=== PATIENT | male | born 1965 | race Caucasian/White ===

== ENCOUNTER 2017-08-22 07:15 | Day surgery (SDC) | payer OTHER, SELFPAY ==
--- NOTE | 2017-08-22 07:15 | DT_ITS ---
This patient was seen during an EMR downtime August 20, 2017 - August 27, 2017. This patient may have a combination of paper and electronic documentation or all paper documentation. All documentation is viewable within the e-chart portion of [facility] for each patient visit.
== END 2017-08-22 09:25 | disposition home or self-care (01) ==
LOC: EN 08-23 11:28
PROVIDERS: Family Provider Family Medicine; PCP Family Medicine; Visit Provider Surgery
PROC: 0DJD8ZZ Inspection of Lower Intestinal Tract, Via Natural or Artificial Opening Endoscopic (ICD-10-PCS; CPT 45378; principal; 2017-08-22 08:25)
DX: Z12.11 Encounter for screening for malignant neoplasm of colon (principal); Z80.0 Family history of malignant neoplasm of digestive organs
CPT/HCPCS: 45378; J7120; J1610

== ENCOUNTER → 2017-10-13 09:19 | Outpatient (CLI) | payer OTHER, SELFPAY ==
[2017-10-13 10:44] LABS: AST(SGOT) 18 U/L (15-37); Alanine Aminotransfer ALT/SGPT 33 U/L (16-61); Alkaline Phosphatase 55 U/L (45-117); Anion Gap 7 (5-15); BUN 14 mg/dL (7-18); Bilirubin, Direct 0.14 mg/dL (0.00-0.30); Calcium,Total 9.1 mg/dL (8.5-10.1); Chloride 106 mmol/L (98-107); Cholesterol 149 mg/dL (200); EST Glomerular Filtration Rate 84 mL/min (>60); Est Glom Filt Rate - Afr Amer 102 mL/min (>60); Globulin 3.3 g/dL (2.2-4.2); Glucose 147 mg/dL (74-106); High Density Lipoprotein 46 mg/dL; Potassium 4.3 mmol/L (3.5-5.1); Protein, Total 7.3 g/dL (6.4-8.2); Sodium Level 142 mmol/L (136-145); Triglycerides 123 mg/dL; Very Low Density Lipoprotein 25 mg/dL (5-40)
[2017-10-13 10:48] LABS: Hemoglobin A1c 7.1 % (4.2-6.3)
[2017-10-13 10:56] LABS: Microalbumin,Random Urine 5.3 mg/L (NO RANGE EST.); Microalbumin:Creatinine Ratio 5.5 mg/g CRE (<30 mg/g CRE)
== END ==
PROVIDERS: Family Provider Family Medicine; PCP Family Medicine; Visit Provider Family Medicine
DX: E11.9 Type 2 diabetes mellitus without complications (principal)
CPT/HCPCS: 36415; 80048; 80061; 80076; 82043; 82570; 83036

== ENCOUNTER → 2019-04-02 15:52 | Outpatient (CLI) | payer OTHER, SELFPAY ==
[2019-04-02 17:52] LABS: Anion Gap 6 (5-15); BUN 20 mg/dL (7-18); BUN/Creat Ratio 11.8 RATIO (10-20); Calcium,Total 8.9 mg/dL (8.5-10.1); Chloride 108 mmol/L (98-107); Cholesterol 168 mg/dL (200); Creatinine, Serum 1.69 mg/dL (0.70-1.30); EST Glomerular Filtration Rate 46 mL/min (>60); Est Glom Filt Rate - Afr Amer 55 mL/min (>60); Glucose 101 mg/dL (74-106); High Density Lipoprotein 41 mg/dL; Potassium 3.8 mmol/L (3.5-5.1); Sodium Level 140 mmol/L (136-145); Triglycerides 298 mg/dL; Very Low Density Lipoprotein 60 mg/dL (5-40)
[2019-04-02 17:57] LABS: Hemoglobin A1c 8.1 % (4.2-6.3)
[2019-04-02 18:02] LABS: Microalbumin,Random Urine 8.5 mg/L (NO RANGE EST.); Microalbumin:Creatinine Ratio 5.9 mg/g CRE (<30 mg/g CRE)
== END ==
PROVIDERS: Family Provider Family Medicine; PCP Family Medicine; Referring Provider Family Medicine; Visit Provider Family Medicine
DX: E11.9 Type 2 diabetes mellitus without complications (principal)
CPT/HCPCS: 36415; 80048; 80061; 82043; 82570; 83036

== ENCOUNTER → 2019-07-24 08:26 | Outpatient (CLI) | payer OTHER, SELFPAY ==
[2019-07-24 11:06] LABS: Anion Gap 6 (5-15); BUN 20 mg/dL (7-18); BUN/Creat Ratio 19.8 RATIO (10-20); Calcium,Total 8.9 mg/dL (8.5-10.1); Chloride 104 mmol/L (98-107); Cholesterol 167 mg/dL (200); Creatinine, Serum 1.01 mg/dL (0.70-1.30); EST Glomerular Filtration Rate 82 mL/min (>60); Est Glom Filt Rate - Afr Amer 100 mL/min (>60); Glucose 142 mg/dL (74-106); High Density Lipoprotein 42 mg/dL; Potassium 4.3 mmol/L (3.5-5.1); Sodium Level 137 mmol/L (136-145); Triglycerides 119 mg/dL; Very Low Density Lipoprotein 24 mg/dL (5-40)
== END ==
PROVIDERS: PCP Family Medicine; Visit Provider Family Medicine
DX: E11.9 Type 2 diabetes mellitus without complications (principal)
CPT/HCPCS: 36415; 80048; 80061

== ENCOUNTER → 2020-04-17 09:27 | Outpatient (CLI) | payer OTHER, SELFPAY ==
[2020-04-17 10:33] LABS: Anion Gap 7 (5-15); BUN 17 mg/dL (7-18); BUN/Creat Ratio 17.2 RATIO (10-20); Calcium,Total 8.8 mg/dL (8.5-10.1); Chloride 106 mmol/L (98-107); Cholesterol 194 mg/dL (200); Creatinine, Serum 0.99 mg/dL (0.70-1.30); EST Glomerular Filtration Rate 84 mL/min (>60); Est Glom Filt Rate - Afr Amer 102 mL/min (>60); Glucose 150 mg/dL (74-106); High Density Lipoprotein 47 mg/dL; Potassium 4.1 mmol/L (3.5-5.1); Sodium Level 139 mmol/L (136-145); Triglycerides 102 mg/dL; Very Low Density Lipoprotein 20 mg/dL (5-40)
== END ==
PROVIDERS: PCP Family Medicine; Referring Provider Family Medicine; Visit Provider Family Medicine
DX: E78.5 Hyperlipidemia, unspecified (principal); I10 Essential (primary) hypertension
CPT/HCPCS: 36415; 80048; 80061

== ENCOUNTER → 2020-04-21 16:28 | Outpatient (CLI) | payer OTHER, SELFPAY ==
[2020-04-21 18:32] LABS: Hemoglobin A1c 7.7 % (3.8-5.6)
== END ==
PROVIDERS: PCP Family Medicine; Referring Provider Family Medicine; Visit Provider Family Medicine
DX: E11.9 Type 2 diabetes mellitus without complications (principal); R68.82 Decreased libido
CPT/HCPCS: 36415; 83036; 84403

== ENCOUNTER → 2020-10-28 08:36 | Outpatient (CLI) | payer OTHER, SELFPAY ==
[2020-10-28 10:34] LABS: Hemoglobin A1c 7.7 % (3.8-5.6)
[2020-10-28 10:45] LABS: Anion Gap 9 (5-15); BUN 16 mg/dL (7-18); Chloride 103 mmol/L (98-107); Cholesterol 169 mg/dL (200); Creatinine, Serum 0.84 mg/dL (0.70-1.30); EST Glomerular Filtration Rate 101 mL/min (>60); Est Glom Filt Rate - Afr Amer 122 mL/min (>60); Glucose 172 mg/dL (74-106); High Density Lipoprotein 42 mg/dL; Sodium Level 137 mmol/L (136-145); Thyroid Stim Hormone (TSH) 1.93 uIU/mL (0.358-3.74); Triglycerides 146 mg/dL; Very Low Density Lipoprotein 29 mg/dL (5-40)
[2020-10-28 10:55] LABS: Microalbumin:Creatinine Ratio 8.2 mg/g CRE (<30 mg/g CRE)
== END ==
PROVIDERS: PCP Family Medicine; Visit Provider Family Medicine
DX: E11.9 Type 2 diabetes mellitus without complications (principal); E66.9 Obesity, unspecified
CPT/HCPCS: 36415; 80048; 80061; 82043; 82570; 83036; 84403; 84443

== ENCOUNTER → 2021-11-04 | Outpatient (CLI) | payer OTHER, SELFPAY ==
[2021-11-04 10:42] LABS: Microalbumin,Random Urine 10.1 mg/L (NO RANGE EST.); Microalbumin:Creatinine Ratio 16.1 mg/g CRE (<30 mg/g CRE)
[2021-11-04 10:47] LABS: Anion Gap 7 (5-15); BUN 16 mg/dL (7-18); BUN/Creat Ratio 16.1 RATIO (10-20); Calcium,Total 9.4 mg/dL (8.5-10.1); Chloride 109 mmol/L (98-107); Cholesterol 179 mg/dL (200); Creatinine, Serum 0.99 mg/dL (0.70-1.30); EST Glomerular Filtration Rate 83 mL/min (>60); Est Glom Filt Rate - Afr Amer 101 mL/min (>60); Glucose 177 mg/dL (74-106); High Density Lipoprotein 44 mg/dL; Potassium 4.2 mmol/L (3.5-5.1); Sodium Level 140 mmol/L (136-145); Triglycerides 139 mg/dL; Very Low Density Lipoprotein 28 mg/dL (5-40)
== END | disposition home or self-care (01) ==
LOC: MFPLAB 09:08
PROVIDERS: PCP Family Medicine; Referring Provider Family Medicine; Visit Provider Family Medicine
DX: E11.9 Type 2 diabetes mellitus without complications (principal)
CPT/HCPCS: 36415; 80048; 80061; 82043; 82570

== ENCOUNTER → 2022-07-18 | Outpatient (CLI) | payer OTHER, SELFPAY ==
[2022-07-18 07:53] LABS: Anion Gap 3 (5-15); BUN 18 mg/dL (7-18); BUN/Creat Ratio 17.1 RATIO (10-20); Calcium,Total 8.7 mg/dL (8.5-10.1); Chloride 107 mmol/L (98-107); Cholesterol 165 mg/dL (200); Creatinine, Serum 1.05 mg/dL (0.70-1.30); EST Glomerular Filtration Rate 78 mL/min (>60); Est Glom Filt Rate - Afr Amer 94 mL/min (>60); Glucose 173 mg/dL (74-106); High Density Lipoprotein 42 mg/dL; Potassium 4.1 mmol/L (3.5-5.1); Sodium Level 138 mmol/L (136-145); Triglycerides 350 mg/dL; Very Low Density Lipoprotein 70 mg/dL (5-40)
[2022-07-18 08:51] LABS: Hemoglobin A1c 7.2 % (3.8-5.6)
== END | disposition home or self-care (01) ==
LOC: LAB 06:58
PROVIDERS: PCP Family Medicine; Referring Provider Family Medicine; Visit Provider Family Medicine
DX: I10 Essential (primary) hypertension (principal); E11.9 Type 2 diabetes mellitus without complications; E78.5 Hyperlipidemia, unspecified
CPT/HCPCS: 36415; 80048; 80061; 83036

== ENCOUNTER 2023-01-30 06:26 | Inpatient (IN) | payer OTHER, SELFPAY ==
[2023-01-30] VITALS (29 sets, daily range): BP systolic 92–175; BP diastolic 60–118; PULSE 90–147; RESP 10–24; TEMP 35.9–36.9; O2SAT 94–100; BMI 26.7; BMI 27.6
--- NOTE | 2023-01-30 06:35 | RAD_ITS ---
INDICATION: chest pain EXAMINATION/TECHNIQUE: X-RAY - XR Chest 1 View COMPARISON: None. FINDINGS: LINES/DEVICES: None. LUNGS: No consolidation or evidence of an effusion. No evidence of edema or a pneumothorax. MEDIASTINUM AND CARDIOVASCULAR STRUCTURES: Cardiac silhouette is normal in size and contour. Mediastinum is unremarkable. BONES AND SOFT TISSUES: No acute abnormality. RAD/Chest 1 View (Portable) IMPRESSION: No evidence of cardiopulmonary disease. Electronically Signed: Mark Zuniga DO at 7:02 EST ,
--- NOTE | 2023-01-30 06:35 | EKG12_ITS ---
Test Reason : CP Blood Pressure : / mmHG Vent. Rate : 095 BPM Atrial Rate : 095 BPM P-R Int : 146 ms QRS Dur : 084 ms QT Int : 370 ms P-R-T Axes : 055 077 086 degrees QTc Int : 464 ms Normal sinus rhythm Nonspecific ST abnormality Abnormal ECG Confirmed by ANNA SERVIN, OFELIA ([id number]), slot editor ILEANA ENRIQUE ([id number]) on 02/07/2023 10:32:49 AM Referred By: Ana Holden Confirmed By:OFELIA CASTILLO MD
[2023-01-30 06:45] LABS: Absolute Lymphocyte Count 2.85 X10^3/uL (0.83-4.51); Absolute Neutrophil Count 4.7 X10^3/uL (2.0-7.7); Basophil# 0.09 X10^3/uL; Basophil% 1.1 % (0-1); Differential Indicated SCAN CRITERIA MET; Eosinophils% 1.2 % (0-5); Hematocrit 55.4 % (40-54); Lymphocyte # 2.85 X10^3/ul (0.83-4.51); Lymphocyte % 34.2 % (19-41); Mean Corp Hgb Conc 33.2 g/dL (32-36); Mean Corpuscular Hgb 29.3 pg (27.0-32.0); Mean Corpuscular Volume 88.4 fL (80-94); Mean Platelet Vol. 10.2 fl (6.2-12.0); Monocyte% 7.2 % (0-10); NRBC Flagged by Analyzer 0 % (0-5); Neutrophil # 4.68 X10^3/uL (2.7-7.7); Neutrophil % 56.1 % (47-70); Platelet Count 292 K/mm3 (150-450); RBC Distribution Width CV 12.7 % (11.6-14.6); RBC Distribution Width SD 41.1 fl (35.1-43.9); Red Blood Count 6.27 M/mm3 (4.6-6.2); White Blood Count 8.3 K/mm3 (4.4-11.0)
[2023-01-30 06:47] LABS: Hemoglobin 18.4 g/dL (13.0-16.5)
--- NOTE | 2023-01-30 06:53 | ED.VIS.CHEST ---
HPI History of Present Illness Chief Complaint: Chest Pain Informant: patient Narrative Narrative: 57-year-old diabetic male presenting to the emergency room with a chief complaint of chest pain. Patient states that around 0500 hrs. he developed a midsternal dull ache. It intensified went into his left arm and shoulder. Patient states that it was getting pretty significant and began to get sweaty. He did not have any vomiting. No jaw pain. States he is a diabetic but I also see that he takes lisinopril and atorvastatin. Non-smoker. He denies primary relative with heart disease under the age of 55. He states that the symptoms have improved significantly but is still slightly present. [facility] Medical History Diabetes HTN (hypertension) Home Medications atorvastatin 20 mg tablet 20 mg PO DAILY 01/30/23 [History Last Taken Unknown] dulaglutide 3 mg/0.5 mL subcutaneous pen injector (Trulicity) 3 mg subcut SA 01/30/23 [History Last Taken Unknown] empagliflozin 25 mg tablet (Jardiance) 25 mg PO DAILY 01/30/23 [History Last Taken Unknown] glimepiride 4 mg tablet 4 mg PO BID 01/30/23 [History Last Taken Unknown] lisinopril 10 mg tablet 10 mg PO DAILY 01/30/23 [History Last Taken Unknown] Allergy/AdvReac Type Severity Reaction Status Date / Time nickel Allergy Rash Verified 01/30/23 06:29 Food Allergies: Uncoded AdvReac Other Verified 01/30/23 06:29 Social History Smoking Status: Former smoker ROS ROS ED Constitutional Constitutional ED: Denies chills or weight loss Eyes Eyes: Denies change in vision or diplopia ENT ENT ED: Denies ear pain, rhinorrhea or sore throat Cardiovascular Cardiovascular: Reports chest pain; Denies orthopnea, palpitations or racing heartbeat Respiratory/Chest Respiratory/Chest: Denies cough, dyspnea or orthopnea Gastrointestinal Gastrointestinal: Denies abdominal pain, diarrhea, nausea or vomiting Genitourinary Genitourinary ED: Denies dysuria, hematuria or urinary frequency Musculoskeletal Musculoskeletal: Denies arthralgias or myalgias Integumentary Denies abscess or rash Neurologic Neurologic: Denies headache(s) or weakness Psychiatric Psychiatric: Denies anxiety, depression, suicidal ideation or suicidal thoughts Endocrine Endocrinology: Denies polydipsia, polyphagia or polyuria Allergic/Immunologic Allergic/Immunologic ED: Denies mouth swelling, tongue swelling or urticaria EXAM Physical Exam Const Vital Signs: 01/30/23 06:31 01/30/23 06:35 01/30/23 07:33 Temperature 96.6 F L Temperature Source Temporal Pulse Rate 99 95 Respiratory Rate 18 14 Blood Pressure 170/106 H 167/118 H Blood Pressure Mean 127 134 Pulse Ox 100 99 Oxygen Delivery Method Room Air Room Air 01/30/23 07:42 01/30/23 07:43 01/30/23 07:45 Temperature Temperature Source Pulse Rate 110 H 111 H 122 H Respiratory Rate 17 14 Blood Pressure 175/105 H 157/104 H 150/108 H Blood Pressure Mean 121 122 Pulse Ox 98 98 Oxygen Delivery Method Room Air Room Air 01/30/23 07:46 01/30/23 07:49 01/30/23 07:52 Temperature Temperature Source Pulse Rate 121 H 116 H 98 Respiratory Rate 12 12 18 Blood Pressure 141/100 H 120/102 H 142/103 H Blood Pressure Mean 113 108 116 Pulse Ox 98 96 95 Oxygen Delivery Method Room Air Room Air Room Air 01/30/23 08:36 01/30/23 08:43 Temperature Temperature Source Pulse Rate 113 H 147 H Respiratory Rate 19 H 20 H Blood Pressure 142/98 H 142/98 H Blood Pressure Mean 112 112 Pulse Ox 99 99 Oxygen Delivery Method Room Air Positive well nourished and well developed General Appearance ED: well developed HEENT Reports normocephalic, head/scalp atraumatic and moist mucous membranes Eyes PERRL and EOMs intact bilaterally Neck no lymphadenopathy, supple and no JVD Resp normal respiratory effort and clear to auscultation bilaterally Cardio regular rate, regular rhythm and no murmurs GI normal to inspection, nondistended, normoactive bowel sounds and non-tender Palpation: soft Back/Spine no CVA tenderness and normal ROM Extremity normal to inspection General Extremety ED: Negative for edema General Extremity: Negative for edema Neuro oriented x3 and CN's II-XII intact bilaterally Sensorium / Orientation: alert Motor Exam: strength 5/5 throughout Psych mental status grossly normal Mood & Affect: Negative for depressed or tearful Skin no rashes or lesions noted and no wounds Heart Score History: Moderately Suspicious ECG: Nonspecific Repolarization Age: >45 - <65 years Risk Factors: >/= 3 Risk Factors or History of CAD Troponin: </= Normal Limit Score: 5 MDM MDM MDM Narrative Medical decision making narrative: Initial EKG shows maybe a millimeter of elevation in 3 possibly slight and aVF. There might be some reciprocal changes in aVL. This was repeated approximately 13 minutes after the first 1 and shows no significant change. This is however a change from EKG dated 31 Jul 2009. Though that is 13 years ago. White count 8.3 with a hemoglobin of 18.4 platelet count of 292. Initial troponin is 10. Creatinine 1.13. My independent interpretation of the chest x-ray is no acute process Patient received a dose of aspirin. He was rating his pain a 5 out of 10 and received a single nitroglycerin sublingual. This caused him to become tachycardic developed a headache his blood pressure dropped from 170 systolic to 142 systolic. No further nitroglycerin was given. Patient blood pressure currently 139/90 with a heart rate of 89. Patient resting comfortably but no significant change in his pain. He is currently rating a 5 out of 10. I paged cardiology and sent the EKGs for review. While waiting on a call back obtain a third EKG (0838 hrs.) which now shows clear ST elevation in 2 3 aVF with reciprocal changes. I discussed it with the patient and a STEMI team was called. Patient received additional Brilinta and heparin. We also administered IV metoprolol as he became significantly tachycardic. Patient will be taken to the Test [facility]. History & Record Review Discussion w/independent historian: Patient and Family Lab Data Attestation: I reviewed the patient's lab results. Labs: Laboratory Results - last 24 hr 01/30/23 06:35 WBC 8.3 RBC 6.27 H Hgb 18.4 H* Hct 55.4 H MCV 88.4 MCH 29.3 MCHC 33.2 RDW Std Deviation 41.1 RDW Coeff of Swapnil 12.7 Plt Count 292 MPV 10.2 Immature Gran % (Auto) 0.200 Neut % (Auto) 56.1 Lymph % (Auto) 34.2 [place] % (Auto) 7.2 Eos % (Auto) 1.2 Baso % (Auto) 1.1 H Absolute Neuts (auto) 4.7 Absolute Lymphs (auto) 2.85 Nucleated RBC % 0 Differential Comment SCANNED Diff Path Review May foll Sodium 137 Potassium 3.9 Chloride 101 Carbon Dioxide 27.0 Anion Gap 9 BUN 17 Creatinine 1.13 Estim Creat Clear Calc 69.06 Est GFR (MDRD) Af Amer 87 Est GFR (MDRD) Non-Af 72 BUN/Creatinine Ratio 15.0 Glucose 228 H Calcium 9.5 Troponin I High Sens 10 Radiography Diagnostic Testing: Clinical Impression(s) from Imaging Studies Chest X-Ray 01/30/23 06:35 IMPRESSION: No evidence of cardiopulmonary disease. Electronically Signed: Mark Zuniga, DO at 7:02 EST , EKG Initial EKG: Attestation: I personally reviewed and interpreted this EKG as follows: Comments: EKG #1 performed 0635 hrs. demonstrated normal sinus rhythm with nonspecific ST abnormality. No definitive features to call STEMI Prior EKG tracings: available for review Prior: Changed (2009) Follow-up EKG: Attestation: I personally reviewed and interpreted this EKG as follows: Comments: EKG #2 performed 0648 hrs. No significant change from prior EKG. Normal sinus rhythm nonspecific ST abnormality with ventricular rate of 88 bpm. No definitive criteria to call STEMI Prior EKG tracings: available for review Prior: Changed Differential Diagnosis Chest pain/SOB: pulmonary embolism, ACS, pneumothorax, pneumonia, aortic dissection, CHF and COPD Critical Care Time Critical Care Time: Yes Critical care time (excluding procedures): 30-74 minutes (35 min), Including time spent:, Discussing w/Patient &/or Family/Furnace Puncher, Discussing w/Consultants, Arranging Admission or Transfer and Performing Direct Patient Care at Bedside Discharge Plan Dx/Rx/DC Orders Clinical Impression: Chest pain, Diabetes mellitus, Hypertension, ACS (acute coronary syndrome), Acute ST elevation myocardial infarction (STEMI) of inferior wall Disposition Disposition: Acute Care Hospital [facility]
[2023-01-30 07:09] LABS: Differential Comment SCANNED
[2023-01-30 07:13] LABS: Anion Gap 9 (5-15); BUN 17 mg/dL (7-18); Calcium,Total 9.5 mg/dL (8.5-10.1); Chloride 101 mmol/L (98-107); Creatinine, Serum 1.13 mg/dL (0.70-1.30); EST Glomerular Filtration Rate 72 mL/min (>60); Est Glom Filt Rate - Afr Amer 87 mL/min (>60); Estimated Creatinine Clearance 69.06 ml/min; Glucose 228 mg/dL (74-106); Potassium 3.9 mmol/L (3.5-5.1); Sodium Level 137 mmol/L (136-145); Troponin-I HS (w/2H Reflex) 10 pg/mL (3.0-78.0)
[2023-01-30] MEDS: Aspirin 325 MG Tablet PO (07:28)
[2023-01-30] MEDS: Nitroglycerin SL (ED/IMG/CATH) 0.4 MG TABLET SL (07:42)
[2023-01-30 08:40] LABS: Reflex Troponin-HS? (from REC) Y
[2023-01-30] MEDS: TICAGRELOR 90 MG TABLET 180 MG PO (08:50)
[2023-01-30] MEDS: Heparin Injection (Vial) 5,000 UNIT/ML VIAL 4000 UNIT IV (08:51)
[2023-01-30] MEDS: Metoprolol Tartrate 5 MG/5 ML Vial IV (08:51)
[2023-01-30] MEDS: 0.9% Normal Saline (1000mL) 1,000 ML 999 ML IV (08:51)
--- NOTE | 2023-01-30 09:09 | ED.RN ---
STEMI ALERT CALLED AT 0840. PT REQUESTING TO USE THE URINAL. PER DR. NICOLE, PT ALLOWED TO USE THE URINAL AT 0842. PT URINATING FROM [phone]. DELAY OF MEDICATION ADMINISTRATION DUE TO PT URINATING. DR. NICOLE AT BEDSIDE AND AWARE.
--- NOTE | 2023-01-30 11:17 | CRPHASE1_ITS ---
Patient Communication Patient Information Former Patient:: Phase I PHII Cardiac Rehab Discussed with Patient:: Yes Guide to Cardiac Rehab Given to Patient:: Yes Cardiac Rehab Facility Choice List Given to Patient:: Yes Communication to Cardiac Rehab Security Project Manager:: Ana Holden Sessions:: 36 sessions - 3 days/wk, 12 weeks Cardiac Rehabilitation Info Program Information Cardiac Rehabilitation Program Information: Cardiac Rehab The cardiac rehab team at [facility] consists of highly skilled exercise physiologists, nurses, respiratory therapists and physicians working together with you. Our purpose is to help you have a full recovery and achieve the goals you set for yourself. Over the years many of our patients have returned to activities they assumed they would never do again! We can help restore your confidence and motivation to make lifestyle changes that can have a significant impact on your health and quality of life! We can help answer questions and concerns you may have about exercise, lifestyle, medications, diet, stress and anxiety which are common following a hospitalization. WE monitor ECG and vital signs during exercise and discuss your progress with you and report to your physician(s). Cardiac Rehab is proven to help reduce readmissions, improve functional capacity and lower recurrence of problems with your heart. Our Cardiac Rehab program is Certified by the [place] [employer] Pulmonary [employer] (AACVPR) and Accredited by the [employer] through our [facility]. You can contact us at . We invite you to call us with your questions or to get started in our program. If you have other questions or concerns be sure to ask your physician/provider during your follow-up visit. WE look forward to seeing you!
--- NOTE | 2023-01-30 11:20 | CRPH1.INSTRU ---
General Education Discussed with Patient CAD and cardiac anatomy and function:: Patient communicates acknowledgment Explanation of diagnoses and procedures:: Patient communicates acknowledgment Sign/Symptoms of MS:: Patient communicates acknowledgment Antiplatelet therapy: Patient communicates acknowledgment Proper use of NTG-SL: Patient communicates acknowledgment Emergency procedures and activation of EMS: Patient communicates acknowledgment Compliance of all prescribed medications: Patient communicates acknowledgment Smoking Risk Factors Patient Nicotine/Smoking Risk Factors Are:: Second-hand smoke Response Code Nicotine/Smoking Response Code:: Patient communicates acknowledgment Dyslipidemia Risk Factors Patient Dyslipidemia Risk Factors Are:: Total Cholesterol Recommendations Recommendations Include:: Lipid profile not available Response Code Dyslipidemia Response Code:: Patient communicates acknowledgment Overweight/Obesity Risk Factors Patient Overweight/Obesity Risk Factors Are:: BMI Normal [18-25 & < 65 years old] Recommendations Recommendations Include:: Weight loss of 5-10%, Reduced calorie diet and Exercise 5-7 times/week Response Code Overweight/Obesity:: Patient communicates acknowledgment Hypertension Risk Factors Patient Hypertension Risk Factors Are:: No documented hx of HTN Recommendations Recommendations Include:: Maintain BP <130/85, BP <130/80 if diabetic, DASH dietary guidelines, Decrease/maintain normal body weight and Moderation of ETOH Response Code Hypertension:: Patient communicates acknowledgment Heart Disease Risk Factors Patient Heart Disease Risk Factors Are:: Family history of heart disease < 65 years old Recommendations Recommendations Include:: Educated family members of their risk Response Code Heart Disease Response Code:: Patient communicates acknowledgment Diabetes Risk Factors Patient Diabetes Risk Factors Are:: Elevated blood sugars and Post-op hyperglycemia Recommendations Recommendations Include:: Maintain fasting blood sugars 70-110 md/dL, Maintain HgbA1c of 6% or less, Monitor blood sugar as prescribed, Diabetic dietary guidelines and Decrease/maintain body weight Response Code Diabetes:: Patient communicates acknowledgment Metabolic Syndrome Risk Factors Patient Metabolic Syndrome Risk Factors Are [3 of 5]:: Fasting blood sugar > 100 mg/dL, Waist circumference > 35 [female] or 40 [male], High triglyceride >150, Hypertension and Low HDL <40 [male] or < 50 [female] Recommendations Recommendations Include:: Reinforce compliance to risk factor modifications, Patient is diabetic and Encouraged follow-up with Primary Care Physician Response Code Metabolic Syndrome Response Code:: Patient communicates acknowledgment Sedentary Risk Factors Patient Sedentary Risk Factors Are:: Lack of regular exercise Recommendations Recommendations Include:: Aerobic exercise 5-7 times/week for 20-30 minutes continuously, Benefits of regular exercise, Discussed home walking program and Monitored Outpatient Cardiac Rehab Response Code Sedentary Response Code:: Patient communicates acknowledgment Stress Risk Factors Patient Stress Risk Factors Are:: Patient denies stress as a risk factor Recommendations Recommendations Include:: Identification of stressors, and assessment of coping skills Response Code Stress Response Code:: Patient communicates acknowledgment
[2023-01-30 12:40] LABS: Troponin-I HS 3500 pg/mL (3.0-78.0)
--- NOTE | 2023-01-30 12:52 | ECHOCS_ITS ---
Reason For Study: STEMI Procedure This was a 2D Doppler, Color Flow transthoracic echocardiogram. The study was technically difficult. Contrast injection was performed. Exam performed portable in ICU/CCU. Left Ventricle Normal left ventricle. The estimated ejection fraction is 50-55 %. Right Ventricle Normal right ventricle. The right ventricle is normal in size, function, and thickness. Atria Normal left atrium. Normal right atrium. Mitral Valve The mitral valve is structurally normal. No prolapse or stenosis seen. No mitral valve insufficiency. Tricuspid Valve Normal tricuspid valve. No tricuspid valve insufficiency. Aortic Valve Normal aortic valve. Pulmonic Valve The pulmonic valve is not well visualized. Great Vessels Normal aortic root. Pericardium/Pleural No pericardial effusion. Medication Diluted definity 2ml given slow IV push to enhance endocardial definition. MMode/2D Measurements & Calculations LVIDd: 3.8 cm IVSd: 0.65 cm Ao root diam: 3.3 cm LVIDs: 3.0 cm LVPWd: 0.73 cm LA dimension: 3.3 cm RVDd: 3.4 cm FS: 23.0 % LAV(MOD-bp): 37.7 ml LVAd ap4: 32.1 cm2 SV(MOD-sp4): 54.0 ml LAV(MOD-bp) Indexed: 19.7 ml/m2 LVLd ap4: 7.9 cm LAV(MOD-sp2): 39.6 ml EDV(MOD-sp4): 106.3 ml LAV(MOD-sp4): 34.2 ml EDV(sp4-el): 110.3 ml LVAs ap4: 19.7 cm2 LVLs ap4: 6.3 cm ESV(MOD-sp4): 52.3 ml ESV(sp4-el): 52.6 ml EF(MOD-sp4): 50.8 % EF(sp4-el): 52.3 % SV(sp4-el): 57.7 ml LA A4 area: 14.0 cm2 RA A4 area: 13.5 cm2 TAPSE: 1.3 cm Time Measurements MV dec time: 0.12 sec Doppler Measurements & Calculations MV E max darren: 68.1 cm/sec Lat Peak E' Darren: 10.1 cm/sec Med Peak E' Darren: 8.7 cm/sec MV A max darren: 109.8 cm/sec E/E' lat: 6.8 E/E' med: 7.8 MV E/A: 0.62 MV V2 max: 119.4 cm/sec MV P1/2t max darren: 96.9 cm/sec Ao V2 max: 155.9 cm/sec MV max P.7 mmHg MV P1/2t: 51.6 msec Ao max P.7 mmHg MV V2 mean: 69.9 cm/sec Ao V2 mean: 112.3 cm/sec MV mean P.3 mmHg MV dec slope: 550.1 cm/sec2 Ao mean P.7 mmHg MV V2 VTI: 20.1 cm MVA(P1/2t): 4.3 cm2 Ao V2 VTI: 26.4 cm AV (velocity ratio): 0.71 LV V1 max: 113.9 cm/sec PA V2 max: 99.1 cm/sec LV V1 max P.2 mmHg PA V2 mean: 76.2 cm/sec LV V1 mean P.9 mmHg LV V1 mean: 79.5 cm/sec LV V1 VTI: 18.7 cm ECHO/Echo Complete W/ Contrast Interpretation Summary The estimated ejection fraction is 50-55 %. Mild inferior wall hypokinesia in comparison to the rest of the myocardium No significant valvular abnormality No prior echocardiogram to compare Ordering Physician: Tamra Pablo Referring Physician: Fab Stapleton Performed By: Conrad Blanco RCS
--- NOTE | 2023-01-30 12:52 | PCM.HP.STD ---
[facility] - General General Date of Admission: 01/30/23 Date of Service: 01/30/23 Chief Complaint: Chest pain. HPI Narrative GAL GONZALEZ, is a 57 M who presents developed midsternal chest pain around 0500. Chest pain referred to to left arm down to left finger. Associate with diaphoresis. No prior similiar symptoms. Found to have inferior ST elevations in inferior leads. In the emergency room, patient received nitroglycerin, heparin, ticagrelor, metoprolol. Patient was taken to the [facility] and underwent heart cath and was found to have stenosis in his right coronary artery. Post-cath, patient is feeling better. [facility] Medical History Diabetes HTN (hypertension) Home Medications atorvastatin 20 mg tablet 20 mg PO DAILY 01/30/23 [History Last Taken Unknown] dulaglutide 3 mg/0.5 mL subcutaneous pen injector (Trulicity) 3 mg subcut SA 01/30/23 [History Last Taken Unknown] empagliflozin 25 mg tablet (Jardiance) 25 mg PO DAILY 01/30/23 [History Last Taken Unknown] glimepiride 4 mg tablet 4 mg PO BID 01/30/23 [History Last Taken Unknown] lisinopril 10 mg tablet 10 mg PO DAILY 01/30/23 [History Last Taken Unknown] Allergy/AdvReac Type Severity Reaction Status Date / Time nickel Allergy Rash Verified 01/30/23 06:29 Food Allergies: Uncoded AdvReac Other Verified 01/30/23 06:29 Social History (Updated 01/30/23 @ 12:[address] Chapo Brown DO) Smoking Status: Former smoker alcohol intake: current alcohol intake frequency: a few times a month substance use type: does not use Vital Signs Vital Signs Vital Signs: 01/30/23 06:31 01/30/23 06:35 01/30/23 07:33 Temperature 35.9 C L Temperature Source Temporal Pulse Rate 99 95 Respiratory Rate 18 14 Blood Pressure 170/106 H 167/118 H Blood Pressure Mean 127 134 Blood Pressure Source Blood Pressure Position Blood Pressure Location Pulse Ox 100 99 Oxygen Delivery Method Room Air Room Air Oxygen Flow Rate (L/min) 01/30/23 07:42 01/30/23 07:43 01/30/23 07:45 Temperature Temperature Source Pulse Rate 110 H 111 H 122 H Respiratory Rate 17 14 Blood Pressure 175/105 H 157/104 H 150/108 H Blood Pressure Mean 121 122 Blood Pressure Source Blood Pressure Position Blood Pressure Location Pulse Ox 98 98 Oxygen Delivery Method Room Air Room Air Oxygen Flow Rate (L/min) 01/30/23 07:46 01/30/23 07:49 01/30/23 07:52 Temperature Temperature Source Pulse Rate 121 H 116 H 98 Respiratory Rate 12 12 18 Blood Pressure 141/100 H 120/102 H 142/103 H Blood Pressure Mean 113 108 116 Blood Pressure Source Blood Pressure Position Blood Pressure Location Pulse Ox 98 96 95 Oxygen Delivery Method Room Air Room Air Room Air Oxygen Flow Rate (L/min) 01/30/23 08:36 01/30/23 08:43 01/30/23 10:34 Temperature Temperature Source Pulse Rate 113 H 147 H 110 H Respiratory Rate 19 H 20 H Blood Pressure 142/98 H 142/98 H Blood Pressure Mean 112 112 Blood Pressure Source Blood Pressure Position Blood Pressure Location Pulse Ox 99 99 Oxygen Delivery Method Room Air Oxygen Flow Rate (L/min) 01/30/23 11:00 01/30/23 10:00 01/30/23 10:15 Temperature Temperature Source Pulse Rate 100 99 Respiratory Rate 17 19 H 12 Blood Pressure 107/78 118/86 H 118/87 H Blood Pressure Mean 87 96 97 Blood Pressure Source Monitor Monitor Monitor Blood Pressure Position Semi-Fowlers Semi-Fowlers Semi-Fowlers Blood Pressure Location Left Arm Left Arm Left Arm Pulse Ox 98 99 98 Oxygen Delivery Method Nasal Cannula Nasal Cannula Nasal Cannula Oxygen Flow Rate (L/min) 2 2 2 01/30/23 10:30 01/30/23 10:45 01/30/23 11:15 Temperature Temperature Source Pulse Rate 118 H 105 H 112 H Respiratory Rate 10 L 20 H 19 H Blood Pressure 114/78 104/76 107/78 Blood Pressure Mean 90 85 87 Blood Pressure Source Monitor Monitor Blood Pressure Position Semi-Fowlers Semi-Fowlers Semi-Fowlers Blood Pressure Location Left Arm Left Arm Left Arm Pulse Ox 97 98 97 Oxygen Delivery Method Nasal Cannula Nasal Cannula Nasal Cannula Oxygen Flow Rate (L/min) 2 2 01/30/23 11:30 01/30/23 11:23 Temperature Temperature Source Pulse Rate 110 H Respiratory Rate 18 Blood Pressure 106/75 Blood Pressure Mean 85 Blood Pressure Source Monitor Blood Pressure Position Semi-Fowlers Blood Pressure Location Right Arm Pulse Ox 96 99 Oxygen Delivery Method Nasal Cannula Nasal Cannula Oxygen Flow Rate (L/min) 2 Weight Weight: 80 kg Body Mass Index (BMI) 27.6 Results Lab / Micro Data Attestation: I reviewed the patient's lab results. 01/30/23 06:35 01/30/23 06:35 Labs: Laboratory Results - last 24 hr 01/30/23 06:35: WBC 8.3, RBC 6.27 H, Hgb 18.4 H*, Hct 55.4 H, MCV 88.4, MCH 29.3, MCHC 33.2, RDW Std Deviation 41.1, RDW Coeff of Swapnil 12.7, Plt Count 292, MPV 10.2, Immature Gran % (Auto) 0.200, Neut % (Auto) 56.1, Lymph % (Auto) 34.2, [place] % (Auto) 7.2, Eos % (Auto) 1.2, Baso % (Auto) 1.1 H, Absolute Neuts (auto) 4.7, Absolute Lymphs (auto) 2.85, Nucleated RBC % 0, Differential Comment SCANNED, Diff Path Review July, Sodium 137, Potassium 3.9, Chloride 101, Carbon Dioxide 27.0, Anion Gap 9, BUN 17, Creatinine 1.13, Estim Creat Clear Calc 69.06, Est GFR (MDRD) Af Amer 87, Est GFR (MDRD) Non-Af 72, BUN/Creatinine Ratio 15.0, Glucose 228 H, Calcium 9.5, Troponin I High Sens 10 01/30/23 11:50: Troponin I High Sens 3500 H* Radiology Impression Chest X-Ray 01/30/23 06:35 IMPRESSION: No evidence of cardiopulmonary disease. Electronically Signed: Mark Zuniga DO at 7:02 EST , Assessment & Plan Assessment/Plan (1) Acute ST elevation myocardial infarction (STEMI) of inferior wall: PLAN: s/p PCI to RCA Continue ASA, ticagrelor, atorvastatin Check echo Cardiology following PLAN: Plan DM2: continue empagliflozin and glimepiride. Add SSI. HTN: monitor. Charges/Coding Visit Charges Inpatient E&M: 90840 Init Hosp L3
--- NOTE | 2023-01-30 13:00 | EKG12_ITS ---
Test Reason : Blood Pressure : / mmHG Vent. Rate : 088 BPM Atrial Rate : 088 BPM P-R Int : 138 ms QRS Dur : 082 ms QT Int : 356 ms P-R-T Axes : 051 080 072 degrees QTc Int : 430 ms Normal sinus rhythm Nonspecific ST abnormality Abnormal ECG Confirmed by ANNA SERVIN, OFELIA ([id number]), book editor ILEANA ENRIQUE ([id number]) on 02/07/2023 10:33:03 AM Referred By: Ana Holden Confirmed By:OFELIA CASTILLO MD
--- NOTE | 2023-01-30 13:03 | PCI.CARDCATH ---
PCI Cardiac Cath Report PCI Report: Procedure performed; Clinical diagnosis; Acute STEMI/inferior ND 1. Moderate edition 2. Selective left coronary angiography 3. Selective right coronary angiography 4. Successful PCI of the culprit which is occluded proximal RCA With predilatation using 2.0 balloon Followed by placement of drug-eluting stent resolute [place] frontier 3 x 30 mm with achievement of excellent result With reduction of lesion from 100% to 0 and improvement in MJ-3 flow initial MJ 0 5 placement of TR band to close the right radial artery arteriotomy site. Preprocedure diagnosis 57-year-old patient has symptoms of retrosternal chest pain today while preparing going to the work Seen and evaluated in the ER where he had 3 sets of EKG initial does not show evidence of ST elevation and subsequent EKG showed clear evidence of a STEMI with ST elevation noted in the inferior leads lead to 3 and aVF And his symptoms of chest pain continue to have symptoms Patient had a history of diabetes mellitus and had been on insulin No other significant medical history in particular no history of stroke no history of prior coronary artery stent or bypass surgery. I have a detailed history from his presentation from patient as well as from the . Consent; Risk and benefits of the procedure explained in detail patient agreed to proceed informed consent obtained Diagnostic catheter and interventional equipment 1. 6 Uzbek sheath in the right radial artery 2. 5 Uzbek JL 3.5 3 Uzbek JR4. 4. 6 Uzbek JR4 guide catheter 6. 2.0 x 15 mm balloon 7. 3 x 30 mm resolute [place] frontier drug-eluting stent Medication used in the [employer] in the ER; Patient was given heparin with acceptable ACT of 275 2. Patient was given Brilinta 180 mg in the ER 3. Patient was given aspirin. Procedure in detail; Patient with acute STEMI/. Brought into the however there is no evidence of dissection. MJ-3 flow was achieved in the RCA Symptoms of chest pain relieved with medication with fentanyl and. Following this TR band applied to right radial artery area to maintain hemostasis with no complication in the [employer] Angiographic findings; 1. Left main is normal angiographically Bifurcating into LAD and the left circumflex 2. Left anterior descending in the midportion of the LAD there is a lesion which is around 40?50% Also there is sidebranch which is a diagonal ostial lesion of around 50?60% which is moderate and its the branching vessel. The rest of the LAD has no significant atherosclerosis, reach all the way to the apex with abundant septal branches The left circumflex proximally had nonobstructive atherosclerosis of around 20% There is OM1 branch had a diffuse ostial and proximal stenosis of around 60% The second obtuse marginal branch had a 90% stenosis with MJ-3 flow 4. RCA the culprit occluded proximally with successful PCI as described Conclusion recommendations; Patient with history of diabetes mellitus, presenting with symptoms of chest pain Has a STEMI acute inferior ND Underwent emergency cardiac catheterization identified the culprit lesion at the proximal RCA which is occluded acute And successfull PCI of the culprit was performed successfully with a MJ-3 flow in the RCA. Which is the dominant moderate to large size RCA. The procedure which is the balloon and stent of the proximal RCA. Recommendations; #1 patient to continue on dual antiplatelet therapy/DAPT 90 mg Brilinta twice daily Aspirin 81 mg once a day for 1 year and aspirin indefinitely Patient will be scheduled after the PCI of the OM 2, cardiac rehab program at the [facility] cardiac center Regarding the lesion in the LAD and the sidebranch diagonal this can be evaluated as an outpatient with a stress test. No complication in the [employer]. Ana Holden MD,FACC,[facility]
--- NOTE | 2023-01-30 14:02 | CON.PCM.CA_ITS ---
<Statement entered by Ana Holden MD - 01/30/23 17:17> Pt seen & evaluated w/ELOISE. I personally interviewed & exam the pt. I was involved in all aspects of pt's orders, interpretation of results & treatment Assessment & Plan Assessment/Plan (1) Acute ST elevation myocardial infarction (STEMI) of inferior wall: (2) Hypertension: (3) Diabetes mellitus: PLAN: Plan * Pt underwent PCI of totally occluded RCA. Will plan on a stagged procedure to his OM2, possibly during this hospital stay. In regards to his LAD, will evaluate with stress on OP basis in the mean time will treat medically. * Will treat with maximal medical therapy with Brilinta, Metoprolol, ASA, Atorvastatin, Asa. Will monitor BP and possible start lisinopril tomorrow. Recommend cardiac rehab on OP basis. HPI Consult Data Date of Consult: 01/30/23 HPI Narrative HPI Narrative: GAL GONZALEZ, is a 57 M who presented to the ER this morning with CP. It was midsternal dull ache that radiates to his left arm and shoulder. He did have diaphoresis. Initial EKG demonstrated 1mm elevation in lead 3 and possible avF. EKG 10 minutes later had no significant change. Third EKG demosntrated ST elevation in 2,3,and aVF with reciprocal changes. STEMI was called and he was urgently taken to the lab support technician. Initial troponin was 10. Heart cath demonstrated left main is angiographically normal, LAD in the midportion of the LAD there is a lesion around 40 to 50%. Sidebranch which is a diagonal ostial lesion of 50 to 60% which is moderate. Circumflex proximal had no obstructive disease with her sclerosis of 20%. OM 1 branch had diffuse ostial with proximal stenosis around 60%. Second obtuse had 90% stenosis. RCA was occluded proximally. He did undergo stenting of this vessel. We will plan for a staged procedure of the OM 2. In regards to his LAD lesion and sidebranch diagonal this was felt could be managed as an outpatient with a stress test. Patient was started on an aspirin and Brilinta.Patient was then transferred to ICU. He does have a history of hypertension and diabetes. [facility] Medical History Diabetes HTN (hypertension) Home Medications atorvastatin 20 mg tablet 20 mg PO DAILY 01/30/23 [History Last Taken Unknown] dulaglutide 3 mg/0.5 mL subcutaneous pen injector (Trulicity) 3 mg subcut SA 01/30/23 [History Last Taken Unknown] empagliflozin 25 mg tablet (Jardiance) 25 mg PO DAILY 01/30/23 [History Last Taken Unknown] glimepiride 4 mg tablet 4 mg PO BID 01/30/23 [History Last Taken Unknown] lisinopril 10 mg tablet 10 mg PO DAILY 01/30/23 [History Last Taken Unknown] Allergy/AdvReac Type Severity Reaction Status Date / Time nickel Allergy Rash Verified 01/30/23 06:29 Food Allergies: Uncoded AdvReac Other Verified 01/30/23 06:29 Social History (Updated 01/30/23 @ 12:[address] Chapo Brown, DO) Smoking Status: Former smoker alcohol intake: current alcohol intake frequency: a few times a month substance use type: does not use ROS Constitutional Constitutional: Denies chills, fatigue or lethargy Eyes Eyes: Denies acute decrease in peripheral vision, blurry vision or change in vision ENT HEENT: Denies dizziness, dry mouth, epistaxis, headache(s), tinnitus or vertigo Cardiovascular Cardiovascular: Reports as per HPI; Denies claudication, dyspnea at rest, dysp josh on exertion, edema, irregular heart rhythm, lightheadedness, orthopnea, palpitations or pedal edema Respiratory/Chest Respiratory/Chest: Denies cough, dyspnea, dyspnea on exertion, tachypnea or wheezing Gastrointestinal Gastrointestinal: Denies abdominal pain, bloating, coffee ground emesis, diarr hea or nausea Genitourinary Genitourinary: Denies hematuria Musculoskeletal Musculoskeletal: Denies myalgias, numbness or tingling Neurologic Neurologic: Denies abnormal gait, abnormal speech, memory loss, paresthesias or weakness Physical Exam Const alert, oriented x3, no apparent distress and healthy appearing HEENT normocephalic, head/scalp atraumatic, hearing grossly normal bilaterally, external ears normal, external nose normal and moist oral mucous membranes Eyes PERRL, EOMs intact bilaterally, conjunctivae normal and no scleral icterus Neck no lymphadenopathy, supple and no JVD Cardio regular rate, regular rhythm, S1 normal heart sound, S2 normal heart sound, no murmurs, no rub, no gallops, no clicks, no JVD and peripheral pulses 2+ throughout GI normal to inspection, nondistended, normoactive bowel sounds, soft to palpation, non-tender and non-distended Extremity normal to inspection, normal capillary refill, no clubbing, cyanosis or edema and no pedal edema Neuro oriented x3, CN's II-XII intact bilaterally, moves all extremities and no focal motor deficits Psych cooperative and affect normal Risk Stratification Risk Stratification Applicable: Yes Age >/= 65: No >/= 3 CAD Risk Factors (HTN, HLD, DM, family hx of CAD, or current smoker): No Aspirin Use in the Past 7 Days: No Severe Angina (>/= episodes in 24 hours): Yes EKG ST Changes >/= 0.5mm: Yes Positive Cardiac Marker: Yes MJ Risk Stratification Score: 3 MJ % Risk: 13% Risk Objective Data Vital Signs: Vital Signs Temp Pulse Resp BP Pulse Ox O2 Del Method O2 Flow Rate 96.6 F L 110 H 18 106/75 96 Nasal Cannula 2 01/30/23 06:31 01/30/23 11:30 01/30/23 11:30 01/30/23 11:30 01/30/23 11:30 01/30/23 11:30 01/30/23 11:23 Oxygen Flow Rate (L/min) 2 Oxygen Delivery Method Nasal Cannula Weight: 176 lb 5.917 oz Body Mass Index (BMI) 27.6 Intake & Output: Intake and Output for Last 24 Hours 01/28/23 01/29/23 01/30/23 23:59 23:59 23:59 Intake Total 100 / 100 Output Total 200 / 200 Balance -100 / -100 Lab / Micro Data 01/30/23 06:35 01/30/23 06:35 Labs: Laboratory Results - last 24 hr 01/30/23 06:35: WBC 8.3, RBC 6.27 H, Hgb 18.4 H*, Hct 55.4 H, MCV 88.4, MCH 29.3, MCHC 33.2, RDW Std Deviation 41.1, RDW Coeff of Swapnil 12.7, Plt Count 292, MPV 10.2, Immature Gran % (Auto) 0.200, Neut % (Auto) 56.1, Lymph % (Auto) 34.2, [place] % (Auto) 7.2, Eos % (Auto) 1.2, Baso % (Auto) 1.1 H, Absolute Neuts (auto) 4.7, Absolute Lymphs (auto) 2.85, Nucleated RBC % 0, Differential Comment SCANNED, Diff Path Review July, Sodium 137, Potassium 3.9, Chloride 101, Carbon Dioxide 27.0, Anion Gap 9, BUN 17, Creatinine 1.13, Estim Creat Clear Calc 69.06, Est GFR (MDRD) Af Amer 87, Est GFR (MDRD) Non-Af 72, BUN/Creatinine Ratio 15.0, Glucose 228 H, Calcium 9.5, Troponin I High Sens 10 01/30/23 11:50: Troponin I High Sens 3500 H* Cardiology Labs/Tests 01/30/23 06:35: WBC 8.3, RBC 6.27 H, Hgb 18.4 H*, Hct 55.4 H, MCV 88.4, MCH 29.3, MCHC 33.2, Plt Count 292, MPV 10.2, Immature Gran % (Auto) 0.200, Neut % (Auto) 56.1, Lymph % (Auto) 34.2, [place] % (Auto) 7.2, Eos % (Auto) 1.2, Baso % (Auto) 1.1 H, Absolute Neuts (auto) 4.7, Nucleated RBC % 0, Sodium 137, Potassium 3.9, Chloride 101, Carbon Dioxide 27.0, Anion Gap 9, BUN 17, Creatinine 1.13, Est GFR (MDRD) Af Amer 87, Est GFR (MDRD) Non-Af 72, BUN/Creatinine Ratio 15.0, Glucose 228 H, Calcium 9.5 Radiography Diagnostic Testing: Radiology Impression Chest X-Ray 01/30/23 06:35 IMPRESSION: No evidence of cardiopulmonary disease. Electronically Signed: Mark Zuniga DO at 7:02 EST ,
[2023-01-30] MEDS: Metoprolol Tartrate 25 MG Tablet PO ×2 (14:35→23:16)
[2023-01-30] MEDS: 0.9% Normal Saline (1000mL) 1,000 ML 75 ML IV (14:36)
[2023-01-30 16:35] LABS: Bedside Glucose 102 mg/dL (74-106)
[2023-01-30] MEDS: Atorvastatin Calcium 80 MG Tablet PO (23:17)
[2023-01-30] MEDS: TICAGRELOR 90 MG TABLET PO (23:17)
[2023-01-31] VITALS (17 sets, daily range): BP systolic 93–128; BP diastolic 57–98; PULSE 90–112; RESP 10–23; TEMP 36.1–37; O2SAT 97–98; BMI 27.4
[2023-01-31 04:55] LABS: Hematocrit 44.1 % (40-54); Hemoglobin 14.3 g/dL (13.0-16.5); Mean Corp Hgb Conc 32.4 g/dL (32-36); Mean Corpuscular Hgb 28.8 pg (27.0-32.0); Mean Corpuscular Volume 88.9 fL (80-94); Platelet Count 246 K/mm3 (150-450); RBC Distribution Width CV 12.9 % (11.6-14.6); RBC Distribution Width SD 41.8 fl (35.1-43.9); Red Blood Count 4.96 M/mm3 (4.6-6.2); White Blood Count 11.8 K/mm3 (4.4-11.0)
[2023-01-31 05:23] LABS: ALB/GLOB Ratio 1.2 RATIO (0.9-2.4); AST(SGOT) 100 U/L (15-37); Alanine Aminotransfer ALT/SGPT 42 U/L (16-61); Albumin, Serum 3.2 g/dL (3.2-5.0); Alkaline Phosphatase 49 U/L (45-117); Anion Gap 3 (5-15); BUN 19 mg/dL (7-18); BUN/Creat Ratio 19.7 RATIO (10-20); Chloride 108 mmol/L (98-107); Cholesterol 133 mg/dL (200); Creatinine, Serum 0.97 mg/dL (0.70-1.30); EST Glomerular Filtration Rate 86 mL/min (>60); Est Glom Filt Rate - Afr Amer 104 mL/min (>60); Estimated Creatinine Clearance 80.45 ml/min; Globulin 2.6 g/dL (2.2-4.2); Glucose 141 mg/dL (74-106); High Density Lipoprotein 37 mg/dL; Potassium 3.7 mmol/L (3.5-5.1); Protein, Total 5.8 g/dL (6.4-8.2); Sodium Level 140 mmol/L (136-145); Triglycerides 163 mg/dL; Very Low Density Lipoprotein 33 mg/dL (5-40)
--- NOTE | 2023-01-31 08:05 | PCM.PN.HOSP ---
Reason for Visit Reason for Visit: Diagnoses Type 2 diabetes mellitus without complications (01/30/23) Essential (primary) hypertension (01/30/23) ST elevation (STEMI) myocardial infarction involving other coronary artery of inferior wall (01/30/23) Subjective Subjective No further chest pain. Ready to get the staged catheterization over. Objective Data Objective Data Vital Signs: Vital Signs Temp Pulse Resp BP Pulse Ox O2 Del Method O2 Flow Rate 37.0 C 110 H 13 114/85 H 98 Room Air 2 01/31/23 04:00 01/31/23 06:00 01/31/23 06:00 01/31/23 06:00 01/31/23 04:00 01/31/23 04:00 01/30/23 11: Oxygen Flow Rate (L/min) 2 Oxygen Delivery Method Room Air Weight: 79.5 kg Body Mass Index (BMI) 27.4 Intake & Output: Intake and Output for Last 24 Hours 01/29/23 01/30/23 01/31/23 23:59 23:59 23:59 Intake Total 1777.5 / 2227.5 450 / 450 Output Total 1400 / 2450 1750 / 1750 Balance 377.5 / -222.5 -1300 / -1300 Lab / Micro Data 01/31/23 04:45 01/31/23 04:45 Labs: Laboratory Results - last 24 hr 01/30/23 11:50: Troponin I High Sens 3500 H* 01/30/23 16:17: POC Glucose 102 01/31/23 04:45: WBC 11.8 H, RBC 4.96, Hgb 14.3, Hct 44.1, MCV 88.9, MCH 28.8, MCHC 32.4, RDW Std Deviation 41.8, RDW Coeff of Swapnil 12.9, Plt Count 246, MPV 10.0, Sodium 140, Potassium 3.7, Chloride 108 H, Carbon Dioxide 29.0, Anion Gap 3 L, BUN 19 H, Creatinine 0.97, Estim Creat Clear Calc 80.45, Est GFR (MDRD) Af Amer 104, Est GFR (MDRD) Non-Af 86, BUN/Creatinine Ratio 19.7, Glucose 141 H, Calcium 8.0 L, Total Bilirubin 0.70, AST 100 H, ALT 42, Alkaline Phosphatase 49, Total Protein 5.8 L, Albumin 3.2, Globulin 2.6, Albumin/Globulin Ratio 1.2, Triglycerides 163, Cholesterol 133, LDL Cholesterol 63, VLDL Cholesterol 33, HDL Cholesterol 37 L Radiography Diagnostic Testing: Radiology Impression Echocardiogram 01/30/23 12:52 Interpretation Summary The estimated ejection fraction is 50-55 %. Mild inferior wall hypokinesia in comparison to the rest of the myocardium No significant valvular abnormality No prior echocardiogram to compare Ordering Physician: Tamra Pablo Referring Physician: Fab Stapleton Performed By: Conrad Blanco RCS Physical Exam Const alert and no apparent distress HEENT head/scalp atraumatic and moist oral mucous membranes Resp normal respiratory effort, no retractions, no use of accessory muscles and clear to auscultation bilaterally Extremity normal to inspection Neuro oriented x3, moves all extremities and no focal motor deficits Sensorium / Orientation: awake and alert Psych affect normal Assessment & Plan Assessment/Plan (1) Acute ST elevation myocardial infarction (STEMI) of inferior wall: PLAN: s/p PCI to RCA. Also noted to have mid LAD stenosis 40-50%. Sidebranch of the 50-60%. NANI 60%. 2nd obtuse marginal branch 90%. Continue ASA, ticagrelor, atorvastatin, metoprolol tartrate 25 Echo with EF 50-55%. Mild inferior wall hypokinesia. Cardiology following Scheduled PCI for OM2 stenosis per cardiology. PLAN: Plan DM2: continue empagliflozin and glimepiride. Add SSI. HTN: monitor. VTE prophylaxis: SCDs Charges/Coding Visit Charges Inpatient E&M: 14031 Subs Hosp L2
[2023-01-31 08:31] LABS: Hemoglobin A1c 6.9 % (3.8-5.6)
[2023-01-31] MEDS: Aspirin E.C. 81 MG Tablet PO (08:51)
[2023-01-31] MEDS: Glimepiride 4 MG Tablet PO ×2 (08:51→18:00)
[2023-01-31] MEDS: TICAGRELOR 90 MG TABLET PO ×2 (08:51→22:13)
[2023-01-31] MEDS: Empagliflozin 25 MG Tablet PO (08:51)
[2023-01-31] MEDS: Metoprolol Tartrate 25 MG Tablet PO ×2 (08:53→22:13)
[2023-01-31 09:15] LABS: Bedside Glucose 135 mg/dL (74-106)
--- NOTE | 2023-01-31 10:00 | EKG12_ITS ---
Test Reason : POST PCI Blood Pressure : / mmHG Vent. Rate : 102 BPM Atrial Rate : 102 BPM P-R Int : 154 ms QRS Dur : 072 ms QT Int : 350 ms P-R-T Axes : 049 078 020 degrees QTc Int : 456 ms Sinus tachycardia Low voltage QRS Nonspecific ST and T wave abnormality Abnormal ECG When compared with ECG of 30-JAN-2023 08:38, MANUAL COMPARISON REQUIRED, DATA IS UNCONFIRMED Confirmed by ANNA SERVIN, OFELIA ([id number]), assistant production editor ILEANA ENRIQUE ([id number]) on 02/07/2023 1:00:05 PM Referred By: Ana Holden Confirmed By:OFELIA CASTILLO MD
[2023-01-31 10:08] LABS: Pathologist Review Reviewed
--- NOTE | 2023-01-31 10:45 | CASEMGMT ---
RN?CM?[employer]ING [employer]?CM?to room to meet with patient for initial transition planning/care coordination?assessment.?RN?CM?introduced self and role at [facility].? Pt voices understanding and consents to?assessment?at this time.? Pt resting in bed in no distress at this time.? @ bedside. Pt is A/O at this time and answers all questions appropriately.?? Care providers, pharmacy, and demographics verified/updated at this time. PCP: Dr Stapleton Specialists: none Preferred Pharmacy: [facility] Retail Insurance: [employer] Prescription Benefit:?Yes. Pt/ provided w/Brilinta 30-day savings card and instructed on use. Questions answered. Made aware, if refills are not affordable to discuss other possible more affordable options w/sql report analyst. Living Will/HPOA:?Pt does not currently have LW/HCPOA and declines info at this time.? Pt made aware that he can contact as an out-pt and make appt in the future if he decides he would like to talk with someone about this or would like to utilize [facility] social work for advanced directive completion.? LNOK: , Angie Living Arrangements: Transportation:?Pt states drives self and states no transportation concerns at this time.? also drives. DME: ? Denies using any DME and denies needs.? HHC/SNF: No hx of either. No needs identified. Pt wishes to return home and states has no concerns with going home at time of discharge.??CM?to follow for any further discharge planning/needs.? Pt and voice no further concerns/needs at this time.? Advised them to ask for?CM?if any further questions/concerns/needs arise.? They voice understanding. PLAN:??Home Tutu NORIEGAN?RN?CM
--- NOTE | 2023-01-31 10:53 | PN.CARD_ITS ---
<Statement entered by Ana Holden MD - 01/31/23 17:19> Pt seen & evaluated w/ELOISE. I personally interviewed & exam the pt. I was involved in all aspects of pt's orders, interpretation of results & treatment Subjective Subjective Pt seen and examined. He does not have any chest pain or SOB. No events overnight. Objective Data Vital Signs: Vital Signs Temp Pulse Resp BP Pulse Ox O2 Del Method O2 Flow Rate 97.1 F L 104 H 17 118/92 H 97 Room Air 2 01/31/23 10:00 01/31/23 10:00 01/31/23 10:00 01/31/23 10:00 01/31/23 10:47 01/31/23 10:47 01/30/23 11: Oxygen Flow Rate (L/min) 2 Oxygen Delivery Method Room Air Weight: 175 lb 4.28 oz Body Mass Index (BMI) 27.4 Intake & Output: Intake and Output for Last 24 Hours 01/29/23 01/30/23 01/31/23 23:59 23:59 23:59 Intake Total 1777.5 / 2227.5 450 / 450 Output Total 1400 / 2450 1750 / 1750 Balance 377.5 / -222.5 -1300 / -1300 Lab / Micro Data 01/31/23 04:45 01/31/23 04:45 Labs: Laboratory Results - last 24 hr 01/30/23 06:35: Diff Path Review Reviewed 01/30/23 11:50: Troponin I High Sens 3500 H* 01/30/23 16:17: POC Glucose 102 01/31/23 04:45: WBC 11.8 H, RBC 4.96, Hgb 14.3, Hct 44.1, MCV 88.9, MCH 28.8, MCHC 32.4, RDW Std Deviation 41.8, RDW Coeff of Swapnil 12.9, Plt Count 246, MPV 10.0, Sodium 140, Potassium 3.7, Chloride 108 H, Carbon Dioxide 29.0, Anion Gap 3 L, BUN 19 H, Creatinine 0.97, Estim Creat Clear Calc 80.45, Est GFR (MDRD) Af Amer 104, Est GFR (MDRD) Non-Af 86, BUN/Creatinine Ratio 19.7, Glucose 141 H, Hemoglobin A1c 6.9 H, Calcium 8.0 L, Total Bilirubin 0.70, AST 100 H, ALT 42, A lkaline Phosphatase 49, Total Protein 5.8 L, Albumin 3.2, Globulin 2.6, Album in/Globulin Ratio 1.2, Triglycerides 163, Cholesterol 133, LDL Cholesterol 63, VLDL Cholesterol 33, HDL Cholesterol 37 L 01/31/23 08:47: POC Glucose 135 H Cardiology Labs/Tests 01/31/23 04:45: WBC 11.8 H, RBC 4.96, Hgb 14.3, Hct 44.1, MCV 88.9, MCH 28.8, MCHC 32.4, Plt Count 246, MPV 10.0, Sodium 140, Potassium 3.7, Chloride 108 H, Carbon Dioxide 29.0, Anion Gap 3 L, BUN 19 H, Creatinine 0.97, Est GFR (MDRD) Af Amer 104, Est GFR (MDRD) Non-Af 86, BUN/Creatinine Ratio 19.7, Glucose 141 H, Hemoglobin A1c 6.9 H, Calcium 8.0 L, Total Bilirubin 0.70, Triglycerides 163, Cholesterol 133, LDL Cholesterol 63, VLDL Cholesterol 33, HDL Cholesterol 37 L Rhythm: SR Radiography Diagnostic Testing: Radiology Impression Echocardiogram 01/30/23 12:52 Interpretation Summary The estimated ejection fraction is 50-55 %. Mild inferior wall hypokinesia in comparison to the rest of the myocardium No significant valvular abnormality No prior echocardiogram to compare Ordering Physician: Tamra Pablo Referring Physician: Fab Stapleton Performed By: Conrad Blanco RCS Physical Exam Const alert, oriented x3, no apparent distress and healthy appearing HEENT normocephalic, head/scalp atraumatic, hearing grossly normal bilaterally, external ears normal, external nose normal and moist oral mucous membranes Eyes PERRL, EOMs intact bilaterally, conjunctivae normal and no scleral icterus Neck no lymphadenopathy, supple and no JVD Cardio regular rate, regular rhythm, S1 normal heart sound, S2 normal heart sound, no murmurs, no rub, no gallops, no clicks, no JVD and peripheral pulses 2+ t hroughout GI normal to inspection, nondistended, normoactive bowel sounds, soft to palpation, non-tender and non-distended Extremity normal to inspection, normal capillary refill, no clubbing, cyanosis or edema and no pedal edema Extremity Narrative: Right radial pulse present. Area of ecchymosis noted. Neuro oriented x3, CN's II-XII intact bilaterally, moves all extremities and no focal motor deficits Psych cooperative and affect normal Assessment & Plan Assessment/Plan (1) Acute ST elevation myocardial infarction (STEMI) of inferior wall: (2) Hypertension: (3) Diabetes mellitus: PLAN: Plan * Pt underwent PCI of totally occluded RCA. Will plan on a stagged procedure to his OM2, tomorrow. In regards to his LAD, will evaluate with stress on OP bas is in the mean time will treat medically. * Will treat with maximal medical therapy with Brilinta, Metoprolol, ASA, Atorvastatin, Asa. Will start lisinopril. Will monitor BP * Recommend cardiac rehab on OP basis. * Echo demonstrated EF 50-55% with mild inferior wall hypokinesia Charges/Coding Visit Charges Inpatient E&M: 69567 [facility] Hosp L3
[2023-01-31] MEDS: Lisinopril 2.5 MG Tablet PO (12:14)
[2023-01-31] MEDS: Insulin Lispro 100 UNIT/ML INSULN.PEN SC (12:58)
[2023-01-31 15:07] LABS: Bedside Glucose 156 mg/dL (74-106)
[2023-01-31 17:04] LABS: Bedside Glucose 122 mg/dL (74-106)
[2023-01-31] MEDS: Atorvastatin Calcium 80 MG Tablet PO (22:17)
[2023-02-01] VITALS (11 sets, daily range): BP systolic 106–117; BP diastolic 75–92; PULSE 98–109; RESP 14–23; TEMP 35.8–36.8; O2SAT 95–98; BMI 27.1
[2023-02-01 04:19] LABS: Absolute Lymphocyte Count 2.88 X10^3/uL (0.83-4.51); Absolute Neutrophil Count 5.4 X10^3/uL (2.0-7.7); Basophil# 0.07 X10^3/uL; Basophil% 0.7 % (0-1); Eosinophil# 0.12 X10^3/uL; Eosinophils% 1.3 % (0-5); Hemoglobin 15.1 g/dL (13.0-16.5); Lymphocyte # 2.88 X10^3/ul (0.83-4.51); Lymphocyte % 30.4 % (19-41); Mean Corp Hgb Conc 33.6 g/dL (32-36); Mean Corpuscular Hgb 29.3 pg (27.0-32.0); Mean Corpuscular Volume 87.2 fL (80-94); Mean Platelet Vol. 10.3 fl (6.2-12.0); Monocyte# 0.98 X10^3/uL; Monocyte% 10.3 % (0-10); NRBC Flagged by Analyzer 0 % (0-5); Neutrophil # 5.39 X10^3/uL (2.7-7.7); Platelet Count 244 K/mm3 (150-450); RBC Distribution Width CV 12.9 % (11.6-14.6); RBC Distribution Width SD 41.4 fl (35.1-43.9); Red Blood Count 5.16 M/mm3 (4.6-6.2); White Blood Count 9.5 K/mm3 (4.4-11.0)
[2023-02-01 04:29] LABS: Anion Gap 8 (5-15); BUN 21 mg/dL (7-18); BUN/Creat Ratio 23.7 RATIO (10-20); Calcium,Total 8.5 mg/dL (8.5-10.1); Chloride 107 mmol/L (98-107); Creatinine, Serum 0.88 mg/dL (0.70-1.30); EST Glomerular Filtration Rate 95 mL/min (>60); Est Glom Filt Rate - Afr Amer 115 mL/min (>60); Estimated Creatinine Clearance 88.68 ml/min; Glucose 98 mg/dL (74-106); Potassium 3.6 mmol/L (3.5-5.1); Sodium Level 139 mmol/L (136-145)
--- NOTE | 2023-02-01 07:57 | PCM.PN.HOSP ---
Reason for Visit Reason for Visit: Diagnoses Type 2 diabetes mellitus without complications (01/30/23) Essential (primary) hypertension (01/30/23) ST elevation (STEMI) myocardial infarction involving other coronary artery of inferior wall (01/30/23) Subjective Subjective No events overnight. Objective Data Objective Data Vital Signs: Vital Signs Temp Pulse Resp BP Pulse Ox O2 Del Method O2 Flow Rate 36.4 C L 102 H 18 107/77 97 Room Air 2 02/01/23 04:00 02/01/23 04:00 02/01/23 04:00 02/01/23 04:00 02/01/23 04:00 02/01/23 04:00 01/30/23 11: Oxygen Flow Rate (L/min) 2 Oxygen Delivery Method Room Air Weight: 78.6 kg Body Mass Index (BMI) 27.1 Intake & Output: Intake and Output for Last 24 Hours 01/30/23 01/31/23 02/01/23 23:59 23:59 23:59 Intake Total 1777.5 / 2227.5 450 / 1050 600 / 600 Output Total 1400 / 2450 3500 / 3980 960 / 960 Balance 377.5 / -222.5 -3050 / -2930 -360 / -360 Lab / Micro Data 02/01/23 03:30 02/01/23 03:30 Labs: Laboratory Results - last 24 hr 01/30/23 06:35: Diff Path Review Reviewed 01/31/23 04:45: Hemoglobin A1c 6.9 H 01/31/23 08:47: POC Glucose 135 H 01/31/23 12:54: POC Glucose 156 H 01/31/23 16:46: POC Glucose 122 H 02/01/23 03:30: WBC 9.5, RBC 5.16, Hgb 15.1, Hct 45.0, MCV 87.2, MCH 29.3, MCHC 33.6, RDW Std Deviation 41.4, RDW Coeff of Swapnil 12.9, Plt Count 244, MPV 10.3, Immature Gran % (Auto) 0.300, Neut % (Auto) 57.0, Lymph % (Auto) 30.4, [place] % (Auto) 10.3 H, Eos % (Auto) 1.3, Baso % (Auto) 0.7, Absolute Neuts (auto) 5.4, Absolute Lymphs (auto) 2.88, Nucleated RBC % 0, Sodium 139, Potassium 3.6, Chloride 107, Carbon Dioxide 24.0, Anion Gap 8, BUN 21 H, Creatinine 0.88, Estim Creat Clear Calc 88.68, Est GFR (MDRD) Af Amer 115, Est GFR (MDRD) Non-Af 95, BUN/Creatinine Ratio 23.7 H, Glucose 98, Calcium 8.5 Physical Exam Const alert and no apparent distress HEENT head/scalp atraumatic Cardio regular rate and regular rhythm Neuro moves all extremities Sensorium / Orientation: awake and alert Psych affect normal Assessment & Plan Assessment/Plan (1) Acute ST elevation myocardial infarction (STEMI) of inferior wall: PLAN: s/p PCI to RCA. Also noted to have mid LAD stenosis 40-50%. Sidebranch of the 50-60%. NANI 60%. 2nd obtuse marginal branch 90%. Continue ASA, ticagrelor, atorvastatin, metoprolol tartrate 25 Echo with EF 50-55%. Mild inferior wall hypokinesia. Cardiology following Scheduled PCI for staged OM2 stenosis 02/01 PLAN: Plan DM2: stable. continue empagliflozin and glimepiride. Add SSI. HTN: monitor. Unclear if true diagnosis as he may have been on lisinopril for renal protectoin. VTE prophylaxis: SCDs Disposition: plan for home on 02/02. Charges/Coding Visit Charges Inpatient E&M: 24579 Subs Hosp L2
--- NOTE | 2023-02-01 10:00 | EKG12_ITS ---
Test Reason : AM EKG Blood Pressure : / mmHG Vent. Rate : 101 BPM Atrial Rate : 101 BPM P-R Int : 140 ms QRS Dur : 094 ms QT Int : 330 ms P-R-T Axes : 045 031 -28 degrees QTc Int : 427 ms Sinus tachycardia Low voltage QRS T wave abnormality, consider inferior ischemia Abnormal ECG When compared with ECG of 30-JAN-2023 09:39, MANUAL COMPARISON REQUIRED, DATA IS UNCONFIRMED Confirmed by ANNA SERVIN, OFELIA ([id number]), primer expeditor and drier ILEANA ENRIQUE ([id number]) on 02/07/2023 1:01:08 PM Referred By: Ana Holden Confirmed By:OFELIA CASTILLO MD
[2023-02-01] MEDS: TICAGRELOR 90 MG TABLET PO ×2 (10:02→21:30)
[2023-02-01] MEDS: Aspirin E.C. 81 MG Tablet PO (10:02)
[2023-02-01] MEDS: Metoprolol Tartrate 25 MG Tablet PO ×2 (10:02→21:30)
[2023-02-01] MEDS: Lisinopril 2.5 MG Tablet PO (10:02)
--- NOTE | 2023-02-01 11:00 | NURSING ---
transferred off floor to laborer starch factory via laborer starch factory RN at this time
--- NOTE | 2023-02-01 12:50 | PCI.CARDCATH ---
PCI Cardiac Cath Report PCI Report: Procedure performed; 1 moderate sedation 2. Successful PCI of OM1 branch/proximal 70% with diffuse atherosclerosis Predilatation using 2 x 15 mm balloon Followed by placement of drug-eluting stent 2.5 x 18 mm, postdilated using 2.75 x 15 mm achieve an excellent result with reduction of stenosis to 0% and maintenance of pre and post MJ-3 flow 2. Successful PCI of OM 2 branch/mid 80% stenosis with predilatation using 2 x 12 mm balloon, followed by placement of drug-eluting stent 2.5 x 18 mm with reduction of stenosis to 0% Maintenance of pre and post MJ-3 flow 3. Placement of Perclose to close the right common femoral artery arteriotomy site. Consent; Risk and benefit of procedure explained in detail patient agreed to proceed informed consent obtained. Access under fluoroscopic guidance 6 [place] sheath placed in the right common femoral artery. Interventional equipment and catheters used 1. 6 [place] JL 4 guide catheter 2. 0.014 180 cm run-through extra floppy straight guide catheter 2 x 12 mm Emerge balloon 4. 2.5 x 80 mm [place] frontier drug-eluting stent 5. 2.5 x 80 mm [place] (drug-eluting stent 6. 2.75 x 15 mm NC emerge MR Medication used in the Senior Relationship Manager Patient was given Brilinta and aspirin today Heparin was used a total of 7000 units intravenous ACT level measured 298 Procedure in detail; 57-year-old patient who had recent STEMI with a PCI and stent of the RCA Was brought in for elective PCI of OM1 OM 2. Access was tried from the right common femoral artery under fluoroscopic guidance and successfully placed a 6 [place] sheath The new proceed with the guide catheter 6 [place] JR4 cheryl Zavala cannulated the left main without difficulty PITTMAN-caudal view for the OM1 and OM 2 lesions obtain then we will proceed with the guidewire across the lesion in OM1 and perform PCI and stent using balloon 2 x 15 followed by placement of drug-eluting stent 2. 5 time 18 mm [place] frontier The same wire was used to cross the lesion in the OM 2 and predilated the lesion with 2 oh by 12 balloon followed by placement of drug-eluting stent 2.5 x 80 mm achieve an excellent result with no complication in the Senior Relationship Manager IC nitroglycerin was used x2. Following this selective right common femoral artery angiography obtained And Perclose used to close the right common femoral artery site with no complication Conclusion recommendations; 57-year-old patient with a recent STEMI inferior Has a PCI and stent of the RCA He was brought for elective PCI of the OM1 and OM 2 which successfully performed today With no complication in the Senior Relationship Manager 2. Patient to continue on dual antiplatelet therapy/DAPT Brilinta 90 mg twice daily in addition to low-dose aspirin To continue rest of his cardiac medication Patient to follow-up with the cardiology team at [facility] for continuation of cardiac care Patient will be scheduled for stage I rehab program here at the [facility] I explained in detail the finding of PCI's to the patient as well as to the He had a lesion in the mid LAD involving a bifurcation lesion with side branch of the diagonal which is a branching vessel This was left alone Patient need to be followed very close to monitor the LAD and diagonal lesion, with possible nuclear stress test evaluation as outpatient Ana Holden MD,FACC,[facility]
--- NOTE | 2023-02-01 13:00 | EKG12_ITS ---
Test Reason : AM EKG Blood Pressure : / mmHG Vent. Rate : 102 BPM Atrial Rate : 102 BPM P-R Int : 142 ms QRS Dur : 072 ms QT Int : 340 ms P-R-T Axes : 051 042 -44 degrees QTc Int : 443 ms Sinus tachycardia T wave abnormality, consider inferior ischemia Abnormal ECG When compared with ECG of 31-JAN-2023 08:06, MANUAL COMPARISON REQUIRED, DATA IS UNCONFIRMED Confirmed by ANNA SERVIN, OFELIA ([id number]), scientific publications editor ILEANA ENRIQUE ([id number]) on 02/07/2023 1:01:19 PM Referred By: Ana Holden Confirmed By:OFELIA CASTILLO MD
--- NOTE | 2023-02-01 13:47 | PN.CARD_ITS ---
Documented by User: Tamra GRAVES, ELY 02/01/23 13:51 Subjective Subjective Pt seen and examined today. No CP/SOB. He will undergo stagged PCI today Objective Data Vital Signs: Vital Signs Temp Pulse Resp BP Pulse Ox O2 Del Method O2 Flow Rate 97.5 F L 98 22 H 111/80 96 Room Air 2 02/01/23 13:20 02/01/23 13:20 02/01/23 13:20 02/01/23 13:20 02/01/23 13:20 02/01/23 13:20 01/30/23 11:23 Oxygen Flow Rate (L/min) 2 Oxygen Delivery Method Room Air Weight: 173 lb 4.533 oz Body Mass Index (BMI) 27.1 Intake & Output: Intake and Output for Last 24 Hours 01/30/23 01/31/23 02/01/23 23:59 23:59 23:59 Intake Total 1777.5 / 2227.5 450 / 1050 600 / 600 Output Total 1400 / 2450 3500 / 3980 960 / 960 Balance 377.5 / -222.5 -3050 / -2930 -360 / -360 Lab / Micro Data 02/01/23 03:30 02/01/23 03:30 Labs: Laboratory Results - last 24 hr 01/31/23 12:54: POC Glucose 156 H 01/31/23 16:46: POC Glucose 122 H 02/01/23 03:30: WBC 9.5, RBC 5.16, Hgb 15.1, Hct 45.0, MCV 87.2, MCH 29.3, MCHC 33.6, RDW Std Deviation 41.4, RDW Coeff of Swapnil 12.9, Plt Count 244, MPV 10.3, Immature Gran % (Auto) 0.300, Neut % (Auto) 57.0, Lymph % (Auto) 30.4, Piatt % (Auto) 10.3 H, Eos % (Auto) 1.3, Baso % (Auto) 0.7, Absolute Neuts (auto) 5.4, Absolute Lymphs (auto) 2.88, Nucleated RBC % 0, Sodium 139, Potassium 3.6, Chloride 107, Carbon Dioxide 24.0, Anion Gap 8, BUN 21 H, Creatinine 0.88, Estim Creat Clear Calc 88.68, Est GFR (MDRD) Af Amer 115, Est GFR (MDRD) Non-Af 95, BUN/Creatinine Ratio 23.7 H, Glucose 98, Calcium 8.5 Cardiology Labs/Tests 02/01/23 03:30: WBC 9.5, RBC 5.16, Hgb 15.1, Hct 45.0, MCV 87.2, MCH 29.3, MCHC 33.6, Plt Count 244, MPV 10.3, Immature Gran % (Auto) 0.300, Neut % (Auto) 57.0, Lymph % (Auto) 30.4, Piatt % (Auto) 10.3 H, Eos % (Auto) 1.3, Baso % (Auto) 0.7, Absolute Neuts (auto) 5.4, Nucleated RBC % 0, Sodium 139, Potassium 3.6, Chloride 107, Carbon Dioxide 24.0, Anion Gap 8, BUN 21 H, Creatinine 0.88, Est GFR (MDRD) Af Amer 115, Est GFR (MDRD) Non-Af 95, BUN/Creatinine Ratio 23.7 H, Glucose 98, Calcium 8.5 Physical Exam Const alert, oriented x3, no apparent distress and healthy appearing HEENT normocephalic, head/scalp atraumatic, hearing grossly normal bilaterally, external ears normal, external nose normal and moist oral mucous membranes Eyes PERRL, EOMs intact bilaterally, conjunctivae normal and no scleral icterus Neck no lymphadenopathy, supple and no JVD Cardio regular rate, regular rhythm, S1 normal heart sound, S2 normal heart sound, no murmurs, no rub, no gallops, no clicks, no JVD and peripheral pulses 2+ throug hout GI normal to inspection, nondistended, normoactive bowel sounds, soft to palpation, non-tender and non-distended Extremity normal to inspection, normal capillary refill, no clubbing, cyanosis or edema and no pedal edema Extremity Narrative: Right radial pulse present. Area of ecchymosis noted. Neuro oriented x3, CN's II-XII intact bilaterally, moves all extremities and no focal motor deficits Psych cooperative and affect normal Assessment & Plan Assessment/Plan (1) Acute ST elevation myocardial infarction (STEMI) of inferior wall: (2) Hypertension: (3) Diabetes mellitus: PLAN: Plan * Pt underwent PCI of totally occluded RCA 01/30/2023. He underwent stagged procedure to his OM1 and OM2 today. In regards to his LAD, will evaluate with stress on OP basis in the mean time will treat medically. * Will treat with maximal medical therapy with Brilinta, Metoprolol, Lisinopril, ASA, Atorvastatin, Asa. Will continue with his brilinta for 12 months. * Recommend cardiac rehab on OP basis. * Echo demonstrated EF 50-55% with mild inferior wall hypokinesia * Will f/u on OP basis. Charges/Coding Visit Charges Inpatient E&M: 97600 Subs Hosp L3 Documented by User: Dr. Ana Holden MD 02/01/23 16:02 Lab / Micro Data 02/01/23 03:30 02/01/23 03:30 Assessment & Plan Assessment/Plan (1) Acute ST elevation myocardial infarction (STEMI) of inferior wall: (2) Hypertension: (3) Diabetes mellitus: PLAN: 57-year-old patient admitted with STEMI acute inferior underwent successful PCI of the RCA And been stable clinically Patient has significant coronary atherosclerosis involving the OM1 and OM 2 He underwent PCI of OM1 and OM 2 today in the Fountain Clerk Also patient has calcified lesion involving the LAD as well as the bifurcation of the sidebranch D1 which is a branching vessel and that was left With the plan of evaluating in the office with treadmill nuclear stress test to assess for cyst ischemia in the LAD distribution Patient advised and reinforced need of dual antiplatelet therapy to continue for 1 year Brilinta 90 mg twice daily in addition to low-dose aspirin And to continue the rest of his cardiac medication. If he remained stable patient can be discharged from cardiac standpoint tomorrow with a plan to follow-up with the cardiology team at [facility] and is scheduled for cardiac rehab phase 1.
[2023-02-01 15:14] LABS: ACT Activated Clotting Time 293 sec (74-137)
[2023-02-01] MEDS: Glimepiride 4 MG Tablet PO (16:29)
[2023-02-01 16:52] LABS: Bedside Glucose 155 mg/dL (74-106)
[2023-02-01] MEDS: Atorvastatin Calcium 80 MG Tablet PO (21:30)
[2023-02-01] MEDS: Acetaminophen 500 MG Tablet 1000 MG PO (22:23)
[2023-02-01 22:24] LABS: Bedside Glucose 254 mg/dL (74-106)
[2023-02-01] MEDS: Insulin Lispro 100 UNIT/ML INSULN.PEN 10 UNIT SC (22:40)
[2023-02-02 00:19] LABS: Bedside Glucose 118 mg/dL (74-106)
[2023-02-02 03:03] VITALS: BP 108/73; PULSE 93; RESP 14; TEMP 36.7; O2SAT 95
[2023-02-02 05:20] VITALS: BMI 27.1
[2023-02-02 06:38] LABS: Bedside Glucose 91 mg/dL (74-106)
[2023-02-02 06:54] LABS: Hematocrit 44.2 % (40-54); Hemoglobin 15.2 g/dL (13.0-16.5); Mean Corp Hgb Conc 34.4 g/dL (32-36); Mean Corpuscular Hgb 29.7 pg (27.0-32.0); Mean Corpuscular Volume 86.5 fL (80-94); Mean Platelet Vol. 10.2 fl (6.2-12.0); Platelet Count 235 K/mm3 (150-450); RBC Distribution Width CV 12.8 % (11.6-14.6); RBC Distribution Width SD 40.1 fl (35.1-43.9); Red Blood Count 5.11 M/mm3 (4.6-6.2); White Blood Count 8.8 K/mm3 (4.4-11.0)
[2023-02-02 07:42] LABS: ALB/GLOB Ratio 1.1 RATIO (0.9-2.4); AST(SGOT) 28 U/L (15-37); Alanine Aminotransfer ALT/SGPT 34 U/L (16-61); Albumin, Serum 3.3 g/dL (3.2-5.0); Alkaline Phosphatase 55 U/L (45-117); Anion Gap 8 (5-15); BUN 19 mg/dL (7-18); BUN/Creat Ratio 22.5 RATIO (10-20); Calcium,Total 8.8 mg/dL (8.5-10.1); Chloride 105 mmol/L (98-107); Creatinine, Serum 0.85 mg/dL (0.70-1.30); EST Glomerular Filtration Rate 100 mL/min (>60); Est Glom Filt Rate - Afr Amer 121 mL/min (>60); Estimated Creatinine Clearance 91.81 ml/min; Glucose 112 mg/dL (74-106); Potassium 3.6 mmol/L (3.5-5.1); Protein, Total 6.3 g/dL (6.4-8.2); Sodium Level 137 mmol/L (136-145)
--- NOTE | 2023-02-02 08:00 | PCM.PN.HOSP ---
Reason for Visit Reason for Visit: Diagnoses Type 2 diabetes mellitus without complications (01/30/23) Essential (primary) hypertension (01/30/23) ST elevation (STEMI) myocardial infarction involving other coronary artery of inferior wall (01/30/23) Subjective Subjective Feels well. Concerned about high blood sugar last night after eating. Objective Data Objective Data Vital Signs: Vital Signs Temp Pulse Resp BP Pulse Ox O2 Del Method O2 Flow Rate 36.7 C 93 14 108/73 95 Room Air 2 02/02/23 03:03 02/02/23 03:03 02/02/23 03:03 02/02/23 03:03 02/02/23 03:03 02/02/23 03:03 01/30/23 11: Oxygen Flow Rate (L/min) 2 Oxygen Delivery Method Room Air Weight: 78.4 kg Body Mass Index (BMI) 27.1 Intake & Output: Intake and Output for Last 24 Hours 01/31/23 02/01/23 02/02/23 23:59 23:59 23:59 Intake Total 450 / 1050 600 / 600 Output Total 3500 / 3980 1460 / 1460 Balance -3050 / -2930 -860 / -860 Lab / Micro Data 02/02/23 06:20 02/02/23 06:20 Labs: Laboratory Results - last 24 hr 02/01/23 12:36: Activated Clotting Time 293 H 02/01/23 16:31: POC Glucose 155 H 02/01/23 21:35: POC Glucose 254 H 02/02/23 00:00: POC Glucose 118 H 02/02/23 05:39: POC Glucose 91 02/02/23 06:20: WBC 8.8, RBC 5.11, Hgb 15.2, Hct 44.2, MCV 86.5, MCH 29.7, MCHC 34.4, RDW Std Deviation 40.1, RDW Coeff of Swapnil 12.8, Plt Count 235, MPV 10.2, Sodium 137, Potassium 3.6, Chloride 105, Carbon Dioxide 24.0, Anion Gap 8, BUN 19 H, Creatinine 0.85, Estim Creat Clear Calc 91.81, Est GFR (MDRD) Af Amer 121, Est GFR (MDRD) Non-Af 100, BUN/Creatinine Ratio 22.5 H, Glucose 112 H, Calcium 8.8, Total Bilirubin 0.90, AST 28, ALT 34, Alkaline Phosphatase 55, Total Protein 6.3 L, Albumin 3.3, Globulin 3.0, Albumin/Globulin Ratio 1.1 Physical Exam Const alert and no apparent distress HEENT head/scalp atraumatic Assessment & Plan Assessment/Plan (1) Acute ST elevation myocardial infarction (STEMI) of inferior wall: PLAN: s/p PCI to RCA. Also noted to have mid LAD stenosis 40-50%. Sidebranch of the 50-60%. NANI 60%. 2nd obtuse marginal branch 90%. Continue ASA, ticagrelor, atorvastatin, metoprolol tartrate 25 and lisinopril 2.5 mg (down from 10 mg he was taking at home) Echo with EF 50-55%. Mild inferior wall hypokinesia. Cardiology following Scheduled PCI for staged OM2 stenosis 02/01 PLAN: Plan DM2: stable. continue empagliflozin and glimepiride. Add SSI. Is concerned about his high blood sugar that he had last night. Explained to him that was an isolated episode actually occurred after he was eating so likely not properly checked after just eating. But overall his blood sugars look stable so I told him I would not change anything in regards to his management. His A1c is 6.9. HTN: monitor. Unclear if true diagnosis as he may have been on lisinopril for renal protectoin. VTE prophylaxis: SCDs Disposition: plan for home on 02/02.
[2023-02-02 08:17] VITALS: O2SAT 97
[2023-02-02 08:19] VITALS: BP 138/93; PULSE 101; RESP 12; TEMP 36.8; O2SAT 96
[2023-02-02] MEDS: TICAGRELOR 90 MG TABLET PO (08:26)
[2023-02-02] MEDS: Aspirin E.C. 81 MG Tablet PO (08:26)
[2023-02-02 08:27] VITALS: BP 138/93; PULSE 101
[2023-02-02] MEDS: Empagliflozin 25 MG Tablet PO (08:27)
[2023-02-02] MEDS: Lisinopril 2.5 MG Tablet PO (08:27)
[2023-02-02] MEDS: Glimepiride 4 MG Tablet PO (08:27)
[2023-02-02] MEDS: Metoprolol Tartrate 25 MG Tablet PO (08:27)
--- NOTE | 2023-02-02 10:00 | EKG12_ITS ---
Test Reason : POST STENT Blood Pressure : / mmHG Vent. Rate : 099 BPM Atrial Rate : 099 BPM P-R Int : 146 ms QRS Dur : 068 ms QT Int : 346 ms P-R-T Axes : 052 036 -29 degrees QTc Int : 444 ms Normal sinus rhythm T wave abnormality, consider inferior ischemia Abnormal ECG No previous ECGs available Confirmed by ANNA SERVIN, OFELIA ([id number]), supervising editor trailer SANJUANITA KIM ([id number]) on 02/13/2023 1:34:19 PM Referred By: Ana Holden Confirmed By:OFELIA CASTILLO MD
--- NOTE | 2023-02-02 10:16 | PCM.DC.SUM ---
Providers Date of Admission: 01/30/23 Primary Care Physician: Dr. Fab Stapleton MD Consultations 01/30/23 11:05 Consult: Hospitalist Routine Consulting Provider: Araseli Storm Reason for Consult: management of pt. EMERGENT Consult: No MD Notified: Yes Date Notified: 01/30/23 Time Notified: 11:06 Method of Notification: Text Reason For Visit: STEMI Diagnosis Discharge Diagnosis (1) Acute ST elevation myocardial infarction (STEMI) of inferior wall: Status: Acute Code(s): I21.19 - ST elevation (STEMI) myocardial infarction involving other coronary artery of inferior wall Plan: s/p PCI to RCA. Also noted to have mid LAD stenosis 40-50%. Sidebranch of the 50-60%. NANI 60%. 2nd obtuse marginal branch 90%. Continue ASA, ticagrelor, atorvastatin, metoprolol tartrate 25 and lisinopril 2.5 mg (down from 10 mg he was taking at home) Echo with EF 50-55%. Mild inferior wall hypokinesia. Cardiology following Scheduled PCI for staged OM2 stenosis 02/01 Plan DM2: stable. continue empagliflozin and glimepiride. Add SSI. Is concerned about his high blood sugar that he had last night. Explained to him that was an isolated episode actually occurred after he was eating so likely not properly checked after just eating. But overall his blood sugars look stable so I told him I would not change anything in regards to his management. His A1c is 6.9. HTN: monitor. Unclear if true diagnosis as he may have been on lisinopril for renal protectoin. VTE prophylaxis: SCDs Disposition: plan for home on 02/02. Medications at Discharge Home Medications dulaglutide 3 mg/0.5 mL subcutaneous pen injector (Trulicity) 3 mg subcut SA 01/30/23 empagliflozin 25 mg tablet (Jardiance) 25 mg PO DAILY 01/30/23 glimepiride 4 mg tablet 4 mg PO BID 01/30/23 aspirin 81 mg tablet,delayed release 81 mg PO BREAKFAST #0 tabs 02/02/23 atorvastatin 80 mg tablet 80 mg PO QHS #30 tabs 02/02/23 lisinopril 2.5 mg tablet 2.5 mg PO DAILY #30 tabs 02/02/23 metoprolol tartrate 25 mg tablet 25 mg PO BID #60 tabs 02/02/23 ticagrelor 90 mg tablet (Brilinta) 90 mg PO BID #60 tabs 02/02/23 Hospital Course Operations None Procedures 2-D Echocardiogram and Cardiac catheterization Summary of Care Provided Minutes Spent on Discharge: 35 Hospital Course: Patient presented with chest pain was found to have ST elevation myocardial infarction. Patient had PTCA to the RCA but was also noted to have stenosis of his OM 2. Patient went staged PCI for OM2 on the . Patient did well. Patient will be on aspirin, ticagrelor, metoprolol, lisinopril and atorvastatin. Weight / BMI Weight Weight: 78.4 kg Body Mass Index (BMI) 27.1 ABG / Lab / Microbiology Data 02/02/23 06:20 02/02/23 06:20 Laboratory: Laboratory Results - last 24 hr 02/01/23 12:36: Activated Clotting Time 293 H 02/01/23 16:31: POC Glucose 155 H 02/01/23 21:35: POC Glucose 254 H 02/02/23 00:00: POC Glucose 118 H 02/02/23 05:39: POC Glucose 91 02/02/23 06:20: WBC 8.8, RBC 5.11, Hgb 15.2, Hct 44.2, MCV 86.5, MCH 29.7, MCHC 34.4, RDW Std Deviation 40.1, RDW Coeff of Swapnil 12.8, Plt Count 235, MPV 10.2, Sodium 137, Potassium 3.6, Chloride 105, Carbon Dioxide 24.0, Anion Gap 8, BUN 19 H, Creatinine 0.85, Estim Creat Clear Calc 91.81, Est GFR (MDRD) Af Amer 121, Est GFR (MDRD) Non-Af 100, BUN/Creatinine Ratio 22.5 H, Glucose 112 H, Calcium 8.8, Total Bilirubin 0.90, AST 28, ALT 34, Alkaline Phosphatase 55, Total Protein 6.3 L, Albumin 3.3, Globulin 3.0, Albumin/Globulin Ratio 1.1 D/C Instructions Discharge Diet: 2000 Calorie Control Diet Meaningful Use Info Meaningful Use Diagnoses (Choose all that apply): AMI AMI/Post PCI/Angioplasty Aspirin given w/in 24hrs of arrival?: Yes ASA at discharge?: Yes Antiplatelet Therapy at Discharge:: Yes Statins at discharge?: Yes Patrick/ARB at discharge?: Yes Beta Shaheen at discharge?: Yes Done w/ Acute IA measure.: Yes Documented LVEF (%): 50 Discharge Plan Admission Admit Date/Time: 01/30/23 11:03 Primary Reason for Your Visit: Myocardial infarction Attending Provider: Ana Holden Primary Care Provider: Fab Stapleton Consulting Providers: Valeria Vegas; Mike Sierra; Patt Davison; Patt Crain; Sixto Hilliard; Idania Knutson; Karen Ching; Sylvain Cheek; Sylvain Mercado; Lionel Carey; Chapo Brown; Shayna Dove; Boni Soriano; Ronnie Piña; Puneet Acevedo; Marilou Roberts; Tuan Armenta; Melania Lopez; Aman Freitas; Fernando Bennett; Fab Stapleton; Miri Griffin; Jc Don; Zenia Felix NP; Toni Nova PA Instructions Additional Instructions / Restrictions: You had a myocardial infarction secondary to blockage of one of your heart vessels. You subsequently underwent subsequent intervention on another vessel that was not acutely causing problems. Subordinate take aspirin, ticagrelor, metoprolol, lisinopril and atorvastatin. Follow-up with cardiology as outpatient. You did have some high blood sugars on a couple occasions while you are here but overall your blood sugar looked okay so I would not change anything in regards to your diabetes at this time. Your A1c was 6.9. Discharge Orders/Prescriptions Prescriptions: New atorvastatin 80 mg Tablet 80 mg PO QHS Qty: 30 0RF aspirin 81 mg Tablet,Delayed Release (Dr/Ec) 81 mg PO BREAKFAST Qty: 0 0RF lisinopril 2.5 mg Tablet 2.5 mg PO DAILY Qty: 30 0RF metoprolol tartrate 25 mg Tablet 25 mg PO BID Qty: 60 0RF Brilinta 90 mg Tablet 90 mg PO BID Qty: 60 0RF Continued glimepiride 4 mg tablet 4 mg PO BID Jardiance 25 mg tablet 25 mg PO DAILY Trulicity 3 mg/0.5 mL pen injector 3 mg SUBCUT SA Discontinued atorvastatin 20 mg tablet 20 mg PO DAILY lisinopril 10 mg tablet 10 mg PO DAILY Referrals / Follow Up: Fab Stapleton MD [Primary Care Provider] - Within 2 Weeks Tamra Pablo PA [Med Staff - [facility]] - 02/19/23 2:00 pm Disposition Disposition (needs filled in before D/C Order can be placed): Home, Self Care Charges/Coding Visit Charges Inpatient E&M: 74527 Disch Hosp >30min
--- NOTE | 2023-02-02 10:58 | PHA.DC.MC.R ---
Pharmacy [facility] has performed discharge medication reconciliation and counseling for this patient. The patient was counseled on the following discharge medications and changes in medications for homegoing were reviewed. 1. LIPITOR --> DOSE CHANGE 2. LISINOPRIL --> DOSE CHANGE 3. LOPRESSOR 4. BRILINTA 5. ASPIRIN The Reason for Use, instructions for use, and potential side effects were reviewed for all new medications. The patient's questions regarding all of their medications were answered. The patient was able to verbally demonstrate an understanding of their discharge medications. The patient's discharge medication list was reviewed for discrepancies and discrepancies were resolved. patient counselled by Artem Lemons PharmD Candidate Medications at Discharge Home Medications dulaglutide 3 mg/0.5 mL subcutaneous pen injector (Trulicity) 3 mg subcut SA 01/30/23 empagliflozin 25 mg tablet (Jardiance) 25 mg PO DAILY 01/30/23 glimepiride 4 mg tablet 4 mg PO BID 01/30/23 aspirin 81 mg tablet,delayed release 81 mg PO BREAKFAST #0 tabs 02/02/23 atorvastatin 80 mg tablet 80 mg PO QHS #30 tabs 02/02/23 lisinopril 2.5 mg tablet 2.5 mg PO DAILY #30 tabs 02/02/23 metoprolol tartrate 25 mg tablet 25 mg PO BID #60 tabs 02/02/23 ticagrelor 90 mg tablet (Brilinta) 90 mg PO BID #60 tabs 02/02/23
--- NOTE | 2023-02-02 11:12 | PN.CARD_ITS ---
<Statement entered by Ana Holden MD - 02/02/23 16:23> Pt seen & evaluated w/ELOISE. I personally interviewed & exam the pt. I was involved in all aspects of pt's orders, interpretation of results & treatment Subjective Subjective Pt seen and examined today. No CP/SOB. Cath site is tender today Objective Data Vital Signs: Vital Signs Temp Pulse Resp BP Pulse Ox O2 Del Method O2 Flow Rate 98.3 F 101 H 12 138/93 H 96 Room Air 2 02/02/23 08:19 02/02/23 08:27 02/02/23 08:19 02/02/23 08:27 02/02/23 08:19 02/02/23 08:20 01/30/23 11:23 Oxygen Flow Rate (L/min) 2 Oxygen Delivery Method Room Air Weight: 172 lb 13.478 oz Body Mass Index (BMI) 27.1 Intake & Output: Intake and Output for Last 24 Hours 01/31/23 02/01/23 02/02/23 23:59 23:59 23:59 Intake Total 450 / 1050 600 / 600 Output Total 3500 / 3980 1460 / 1460 Balance -3050 / -2930 -860 / -860 Lab / Micro Data 02/02/23 06:20 02/02/23 06:20 Labs: Laboratory Results - last 24 hr 02/01/23 12:36: Activated Clotting Time 293 H 02/01/23 16:31: POC Glucose 155 H 02/01/23 21:35: POC Glucose 254 H 02/02/23 00:00: POC Glucose 118 H 02/02/23 05:39: POC Glucose 91 02/02/23 06:20: WBC 8.8, RBC 5.11, Hgb 15.2, Hct 44.2, MCV 86.5, MCH 29.7, MCHC 34.4, RDW Std Deviation 40.1, RDW Coeff of Swapnil 12.8, Plt Count 235, MPV 10.2, Sodium 137, Potassium 3.6, Chloride 105, Carbon Dioxide 24.0, Anion Gap 8, BUN 19 H, Creatinine 0.85, Estim Creat Clear Calc 91.81, Est GFR (MDRD) Af Amer 121, Est GFR (MDRD) Non-Af 100, BUN/Creatinine Ratio 22.5 H, Glucose 112 H, Calcium 8.8, Total Bilirubin 0.90, AST 28, ALT 34, Alkaline Phosphatase 55, Total Protein 6.3 L, Albumin 3.3, Globulin 3.0, Albumin/Globulin Ratio 1.1 Cardiology Labs/Tests 02/02/23 06:20: WBC 8.8, RBC 5.11, Hgb 15.2, Hct 44.2, MCV 86.5, MCH 29.7, MCHC 34.4, Plt Count 235, MPV 10.2, Sodium 137, Potassium 3.6, Chloride 105, Carbon Dioxide 24.0, Anion Gap 8, BUN 19 H, Creatinine 0.85, Est GFR (MDRD) Af Amer 121, Est GFR (MDRD) Non-Af 100, BUN/Creatinine Ratio 22.5 H, Glucose 112 H, Ca lcium 8.8, Total Bilirubin 0.90 Rhythm: NSR Physical Exam Const alert, oriented x3, no apparent distress and healthy appearing HEENT normocephalic, head/scalp atraumatic, hearing grossly normal bilaterally, external ears normal, external nose normal and moist oral mucous membranes Eyes PERRL, EOMs intact bilaterally, conjunctivae normal and no scleral icterus Neck no lymphadenopathy, supple and no JVD Cardio regular rate, regular rhythm, S1 normal heart sound, S2 normal heart sound, no murmurs, no rub, no gallops, no clicks, no JVD and peripheral pulses 2+ throughout GI normal to inspection, nondistended, normoactive bowel sounds, soft to palpation, non-tender and non-distended Extremity normal to inspection, normal capillary refill, no clubbing, cyanosis or edema and no pedal edema Extremity Narrative: Right radial pulse present. Area of ecchymosis noted. Right femoral good pulse. Neuro oriented x3, CN's II-XII intact bilaterally, moves all extremities and no focal motor deficits Psych cooperative and affect normal Assessment & Plan Assessment/Plan (1) Acute ST elevation myocardial infarction (STEMI) of inferior wall: (2) Hypertension: (3) Diabetes mellitus: PLAN: Plan * Pt underwent PCI of totally occluded RCA 01/30/2023. He underwent stagged procedure to his OM1 and OM2 02/01/23. In regards to his LAD, will evaluate with stress on OP basis in the mean time will treat medically. * Will treat with maximal medical therapy with Brilinta, Metoprolol, Lisinopril, ASA, Atorvastatin, Asa. Will continue with his brilinta for 12 months. * Recommend cardiac rehab on OP basis. * Echo demonstrated EF 50-55% with mild inferior wall hypokinesia * Will f/u on OP basis. Charges/Coding Visit Charges Inpatient E&M: 06524 Subs Hosp L2
[2023-02-02] MEDS: Insulin Lispro 100 UNIT/ML INSULN.PEN SC (11:36)
--- NOTE | 2023-02-02 12:03 | CASEMGMT ---
Patient had order for discharge. RN CM called [facility] regarding Brilinta cost, copay $0, savings card applied. RN CM in to discuss needs at discharge with patient and and updated regarding Brilinta copay. Patient and denied further needs at this time. Patient had no further questions or concerns.
[2023-02-02 12:07] LABS: Bedside Glucose 247 mg/dL (74-106)
== END 2023-02-02 12:51 | disposition home or self-care (01) | DRG 322 ==
LOC: ED 08:44 → ICU 11:24 → PCU 02-02 10:21
PROVIDERS: Internal Medicine; Admitting Provider Internal Medicine Interventional Cardiology; Emergency Provider Emergency Medicine; PCP Family Medicine; Referring Provider Internal Medicine Interventional Cardiology; Visit Provider Internal Medicine Interventional Cardiology
DX: I21.19 ST elevation (STEMI) myocardial infarction involving other coronary artery of inferior wall (principal); E11.9 Type 2 diabetes mellitus without complications; I10 Essential (primary) hypertension; I25.10 Atherosclerotic heart disease of native coronary artery without angina pectoris; Z95.5 Presence of coronary angioplasty implant and graft; Z79.02 Long term (current) use of antithrombotics/antiplatelets; Z79.82 Long term (current) use of aspirin; Z79.84 Long term (current) use of oral hypoglycemic drugs; Z79.85 Long-term (current) use of injectable non-insulin antidiabetic drugs; Z79.899 Other long term (current) drug therapy; Z87.891 Personal history of nicotine dependence; Z82.49 Family history of ischemic heart disease and other diseases of the circulatory system
CPT/HCPCS: 36415; 71045; 80048; 80053; 80061; 82962; 83036; 84484; 85025; 85027; 85347; 92928; 92929; 92941; 93005; 93306; 93454; 94640; 99152; 99153; 99285; J7030; Q9957; Q9967; A4216; C1725; C1760; C1769; C1874; C1887; C1894; C8929; C9600; C9601; C9606

== ENCOUNTER → 2023-07-27 | Outpatient (CLI) | payer OTHER, SELFPAY ==
[2023-07-27 08:52] LABS: Anion Gap 4 (5-15); BUN 15 mg/dL (7-18); BUN/Creat Ratio 16.1 RATIO (10-20); Calcium,Total 9.1 mg/dL (8.5-10.1); Chloride 107 mmol/L (98-107); Creatinine, Serum 0.93 mg/dL (0.70-1.30); EST Glomerular Filtration Rate 89 mL/min (>60); Est Glom Filt Rate - Afr Amer 108 mL/min (>60); Glucose 109 mg/dL (74-106); Potassium 3.8 mmol/L (3.5-5.1); Sodium Level 139 mmol/L (136-145)
[2023-07-27 08:55] LABS: AST(SGOT) 39 U/L (15-37); Alanine Aminotransfer ALT/SGPT 116 U/L (16-61); Albumin, Serum 3.8 g/dL (3.2-5.0); Alkaline Phosphatase 61 U/L (45-117); Bilirubin, Direct 0.24 mg/dL (0.00-0.30); Cholesterol 117 mg/dL (200); Globulin 2.7 g/dL (2.2-4.2); High Density Lipoprotein 48 mg/dL; Protein, Total 6.5 g/dL (6.4-8.2); Triglycerides 76 mg/dL; Very Low Density Lipoprotein 15 mg/dL (5-40)
[2023-07-27 10:11] LABS: Hemoglobin A1c 6.1 % (3.8-5.6)
== END | disposition home or self-care (01) ==
PROVIDERS: PCP Family Medicine; Referring Provider Physician Assistant Medical; Visit Provider Physician Assistant Medical
DX: E11.9 Type 2 diabetes mellitus without complications (principal); I25.10 Atherosclerotic heart disease of native coronary artery without angina pectoris
CPT/HCPCS: 36415; 80048; 80061; 80076; 83036

== ENCOUNTER → 2024-03-14 | Outpatient (CLI) | payer OTHER, SELFPAY ==
[2024-03-14 11:20] LABS: ALB/GLOB Ratio 1.1 RATIO (0.9-2.4); AST(SGOT) 22 U/L (15-37); Alanine Aminotransfer ALT/SGPT 56 U/L (16-61); Albumin, Serum 3.5 g/dL (3.2-5.0); Alkaline Phosphatase 58 U/L (45-117); Anion Gap 2 (5-15); BUN 13 mg/dL (7-18); BUN/Creat Ratio 14.4 RATIO (10-20); Calcium,Total 8.9 mg/dL (8.5-10.1); Chloride 109 mmol/L (98-107); Cholesterol 111 mg/dL (200); EST Glomerular Filtration Rate 92 mL/min (>60); Est Glom Filt Rate - Afr Amer 111 mL/min (>60); Globulin 3.2 g/dL (2.2-4.2); Glucose 179 mg/dL (74-106); High Density Lipoprotein 52 mg/dL; Potassium 4.2 mmol/L (3.5-5.1); Protein, Total 6.7 g/dL (6.4-8.2); Sodium Level 138 mmol/L (136-145); Triglycerides 68 mg/dL; Very Low Density Lipoprotein 14 mg/dL (5-40)
[2024-03-14 11:48] LABS: Microalbumin,Random Urine < 5.0 mg/L (NO RANGE EST.)
== END | disposition home or self-care (01) ==
LOC: MFPLAB 08:00
PROVIDERS: PCP Family Medicine; Referring Provider Family Medicine; Visit Provider Family Medicine
DX: E11.9 Type 2 diabetes mellitus without complications (principal)
CPT/HCPCS: 36415; 80053; 80061; 82043; 82570

== ENCOUNTER → 2025-01-21 | Outpatient (CLI) | payer OTHER, SELFPAY ==
[2025-01-21 13:20] LABS: AST(SGOT) 24 U/L (<=37); Alanine Aminotransfer ALT/SGPT 50 U/L (<=46); Albumin, Serum 4.3 g/dL (3.5-5.0); Alkaline Phosphatase 64 U/L (40-129); Anion Gap 10 (5-15); BUN 16 mg/dL (4-19); BUN/Creat Ratio 17.5 RATIO (10-20); Calcium,Total 9.2 mg/dL (7.6-11.0); Carbon Dioxide 24.6 mmol/L (21.0-32.0); Chloride 105 mmol/L (98-108); Cholesterol 146 mg/dL (<=200); Globulin 2.3 g/dL (2.2-4.2); Glucose 164 mg/dL (70-99); Low Density Lipoprotein Calc. 76 mg/dL; Potassium 4.0 mmol/L (3.3-5.1); Triglycerides 124 mg/dL; Very Low Density Lipoprotein 25 mg/dL (5-40); cholesterol:hdl ratio screen 3.07
== END | disposition home or self-care (01) ==
LOC: MFPLAB 09:42
PROVIDERS: PCP Family Medicine; Visit Provider Family Medicine
DX: E11.9 Type 2 diabetes mellitus without complications (principal)
CPT/HCPCS: 36415; 80053; 80061; 83036